=== PATIENT | male | born 1950 | race Caucasian/White ===

== ENCOUNTER 2016-08-27 08:21 | Day surgery (SDC) | payer OTHER, BC ==
[2016-08-26 15:00] VITALS: BMI 27.5
[2016-08-27] MEDS ORDERED: PROPOFOL 20 ML ONE ×3 (10:15)
[2016-08-27] MEDS ORDERED: LIDOCAINE HCL/PF 1% SDV 5ML VIAL ONE (10:15)
[2016-08-27 10:16] VITALS: TEMP 97.5
[2016-08-27 12:15] VITALS: BP 119/61; PULSE 64
--- NOTE | 2016-08-30 13:42 | PATH ---
Surgical Pathology Report Patient Name: Justyna LAWSON [facility] Rec. #: [id number] /Age/Gender: 1950 (Age: 66) / M Account: [id number] Location: ASU-ENDOSCOPY Taken: 08/27/2016 Received: 08/27/2016 Reported: 08/30/2016 Physicians: Balbir Parry M.D. Specimen(s) Received A: RECTAL POLYP B: HEPATIC FLEXURE POLYP C: ASCENDING COLON POLYP D: TRANSVERSE COLON POLYP Clinical History Diverticulosis, partial resection of colon Polyps, diverticulosis, internal and external hemorrhoids Final Diagnosis A. RECTUM, POLYP, POLYPECTOMY: FRAGMENTS OF HYPERPLASTIC POLYP. B. COLON, HEPATIC FLEXURE, POLYP, POLYPECTOMY: TUBULAR ADENOMA. C. COLON, ASCENDING, POLYP, POLYPECTOMY: FRAGMENTS OF TUBULAR ADENOMA. D. COLON, TRANSVERSE, POLYP, POLYPECTOMY: TUBULAR ADENOMA. Electronically Signed Inocente Carter M.D. Gross Description A. Received in formalin, labeled "rectal polyp" are 2 fields, irregular portions of soft tissue measuring 0.2 and 0.3 cm in greatest dimension. The specimens are submitted in toto in one cassette. B. Received in formalin, labeled "hepatic flexure polyp" are 2 fields, irregular portions of soft tissue measuring 0.2 and 0.4 cm in greatest dimension. The specimens are submitted in toto in one cassette. C. Received in formalin, labeled "ascending colon polyp" are 2 fields, irregular portions of soft tissue measuring 0.2 and 0.4 cm in greatest dimension. The specimens are submitted in toto in one cassette. D. Received in formalin, labeled "transverse colon polyp" is a fields, irregular portion of soft tissue measuring 0.2 cm in greatest dimension. The specimen is submitted in toto in one cassette. /08/27/201608/27/2016
== END 2016-08-27 11:25 | disposition home or self-care (01) ==
LOC: JASU-ENDO 08:21
PROVIDERS: ATTEND Internal Medicine Gastroenterology
PROC: 0DBK8ZX Excision of Ascending Colon, Via Natural or Artificial Opening Endoscopic, Diagnostic (ICD-10-PCS; 2016-08-27)
PROC: 0DBL8ZX Excision of Transverse Colon, Via Natural or Artificial Opening Endoscopic, Diagnostic (ICD-10-PCS; 2016-08-27)
PROC: 0DBP8ZX Excision of Rectum, Via Natural or Artificial Opening Endoscopic, Diagnostic (ICD-10-PCS; principal; 2016-08-27 09:30)
DX: Z12.11 Encounter for screening for malignant neoplasm of colon (principal); Z86.010 Personal history of colon polyps; D12.2 Benign neoplasm of ascending colon; D12.3 Benign neoplasm of transverse colon; K62.1 Rectal polyp; K57.30 Diverticulosis of large intestine without perforation or abscess without bleeding; K64.8 Other hemorrhoids
CPT/HCPCS: 88305-TC

== ENCOUNTER 2017-01-13 10:17 | Day surgery (SDC) | payer OTHER, BC ==
[~2017-01-13 10:17] MED LIST: LIDOCAINE HCL 1%, 10 MG/ML (20ML VIAL) IJ ONE
[2017-01-13 11:18] VITALS: BMI 28.1
[2017-01-13] MEDS ORDERED: LIDOCAINE HCL 1%, 10 MG/ML (20ML VIAL) ONE (14:00)
[2017-01-13] MEDS ORDERED: PROMETHAZINE HCL 25 MG/1 ML VIAL IVPUSH PRN ×2 (14:14→16:01)
[2017-01-13] MEDS ORDERED: oxyCODONE HCL 5 MG TABLET PO PRN ×2 (14:14→16:01)
[2017-01-13] MEDS ORDERED: ONDANSETRON 4 MG/2 ML VIAL IVPUSH PRN ×2 (14:14→16:01)
[2017-01-13] MEDS ORDERED: MIDAZOLAM HCL 2 MG/2 ML SINGLE DOSE VIAL ONE ×2 (14:30→14:43)
[2017-01-13] MEDS ORDERED: PROPOFOL 20 ML ONE ×3 (14:41→15:38)
[2017-01-13] MEDS ORDERED: LIDOCAINE HCL 1%, 10 MG/ML (20ML VIAL) IJ ONE (14:41)
[2017-01-13] MEDS ORDERED: LIDOCAINE HCL 1%, 10 MG/ML (50 mL VIAL) IJ ONE (14:41)
[2017-01-13] MEDS ORDERED: ceFAZolin SODIUM 1 GM VIAL IVPB ONE (14:46)
[2017-01-13] MEDS ORDERED: ceFAZolin SODIUM 1 GM VIAL ONE (14:47)
[2017-01-13] MEDS ORDERED: HEPARIN NA (PORCINE) 5,000 UNITS/ML 1ML VIAL ONE (15:10)
--- NOTE | 2017-01-13 16:03 | OP ---
Operative Note - Note: Operative Date: 01/13/17 Pre-Operative Diagnosis: Right lower extremity claudication Operation: Aortogram, RLE angiogram, ant tibial and posterior tibial artery angioplasty Findings: post tibial artery occlusion Post-Operative Diagnosis: Same as Pre-op Surgeon: Julio Hartman Anesthesia: Fractional Estimated Blood Loss (mls): 50 Operative Report Dictated: Yes
[2017-01-13] MEDS ORDERED: CLOPIDOGREL BISULFATE 75 MG TABLET (FP) PO ONE (16:06)
--- NOTE | 2017-01-13 16:08 | HP ---
Admitting History and Physical - Admission Chief Complaint: RLE claudication - Past Medical History MANAGER GAME: Yes: Alzheimer's Cardiovascular: Yes: HTN, Hyperlipdemia, HI Endocrine: Yes: Diabetes Mellitus - Past Surgical History Past Surgical History: Yes: Colectomy - Smoking History Smoking history: Never smoked Aproximately how many cigarettes per day: 0 - Alcohol/Substance Use Hx Alcohol Use: No Home Medications - Allergies Allergies/Adverse Reactions: Allergies Allergy/AdvReac Type Severity Reaction Status Date / Time doxycycline Allergy Verified 01/13/17 11:36 hydromorphone HCl Allergy Verified 01/13/17 11:36 [From Dilaudid] - Home Medications Home Medications: Ambulatory Orders Ezetimibe [Zetia] 10 mg PO DAILY 03/02/13 Fenofibrate 54 mg PO HS 03/02/13 Glimepiride [Amaryl] 4 mg PO BID 03/02/13 Levothyroxine [Synthroid -] 200 mcg PO DAILY 03/02/13 Memantine HCl [Namenda -] 28 mg PO DAILY 03/02/13 Metoprolol Succinate [Toprol XL -] 25 mg PO BID 03/02/13 Ranolazine [Ranexa -] 1,000 mg PO DAILY 03/02/13 Alfuzosin HCl [Alfuzosin HCl ER] 10 mg PO DAILY 08/26/16 Alprazolam [Xanax] 1 mg PO DAILY 08/26/16 Bupropion HCl [Wellbutrin Xl] 300 mg PO DAILY 08/26/16 Cholecalciferol (Vitamin D3) [Vitamin D3] 4,000 unit PO HS 08/26/16 Cyanocobalamin (Vitamin B-12) [Vitamin B12] 2,500 mcg PO DAILY 08/26/16 Finasteride 5 mg PO HS 08/26/16 Galantamine Hydrobromide [Razadyne (Nf)] 4 mg PO BID 08/26/16 Magnesium Oxide [Magnesium] 500 mg PO HS 08/26/16 Pramipexole Di-HCl [Mirapex] 0.5 mg PO HS 08/26/16 Ramipril 1 tab PO DAILY 08/26/16 Sitagliptin Phos/Metformin HCl [Janumet 50-1,000 mg Tablet] 1 each PO BID Prasugrel Hydrochloride [Effient -] 10 mg PO DAILY #0 08/27/16 Clopidogrel Bisulfate [Plavix -] 75 mg PO DAILY #90 tablet 01/13/17 Isosorbide Mononitrate [Isosorbide Mononitrate ER] 30 mg PO DAILY 01/13/17 Rosuvastatin Calcium [Crestor] 40 mg PO HS 01/13/17 Sitagliptin Phos/Metformin HCl [Janumet 50-1,000 mg Tablet] 1 each PO DAILY Ubidecarenone [Co Q-10] 200 mg PO HS 01/13/17 Physical Examination Vital Signs: Vital Signs Temperature 98.1 F 01/13/17 11:49 Pulse Rate 62 01/13/17 11:49 Respiratory Rate 18 01/13/17 11:49 Blood Pressure 115/72 01/13/17 11:49 O2 Sat by Pulse Oximetry (%) 99 01/13/17 11:50 Constitutional: Yes: Well Nourished Eyes: Yes: WNL HENT: Yes: WNL Neck: Yes: WNL Cardiovascular: Yes: WNL Respiratory: Yes: WNL Gastrointestinal: Yes: WNL Extremities: Yes: WNL Edema: No Assessment/Plan RLE claudication 1. For angiogram today
[2017-01-13 17:03] VITALS: TEMP 97.7
--- NOTE | 2017-01-13 17:52 | OP ---
DATE OF OPERATION: 01/13/2017 PREOPERATIVE DIAGNOSIS: Right lower extremity claudication. POSTOPERATIVE DIAGNOSIS: Right lower extremity claudication. PROCEDURE PERFORMED: Aortogram, right lower extremity angiogram, anterior tibial artery angioplasty, posterior tibial artery angioplasty. SURGEON: Julio Melgar DO ANESTHESIA: Fractional. BLOOD LOSS: 50 mL. INDICATIONS: The patient is a 66-year-old male who came into the office complaining of claudication of bilateral lower extremities. Preoperative ultrasound showed that he has femoral, popliteal and tibial disease. It was felt that he would need a diagnostic angiogram. DESCRIPTION OF PROCEDURE: The patient was consented for the procedure, understanding all risks, benefits and alternatives. He was then taken to the operating room. Once in the operating room, the patient was laid on the operating table in the supine manner. The areas of the left and right groin were prepped and draped in a sterile surgical manner. We then injected 10 mL of lidocaine 1% over the left common femoral artery. We then went ahead and used our micropuncture needle and punctured the left common femoral artery. Micropuncture wire was inserted. An additional 5-Gabonese sheath was inserted. We then placed a 0.035 floppy guidewire up into the aorta, followed by an Omni Flush catheter. We then shot an aortogram by hand injection, showing that aorta and iliac arteries bilaterally were without any disease. We then placed an 0.035 floppy guidewire into the right common femoral artery and our Omni Flush catheter was placed. We then shot an angiogram of the right lower extremity, showing that the common femoral artery, the profunda and the SFA were patent. The popliteal artery was patent. Below-knee popliteal artery was patent. The peroneal artery went down to above the ankle, and the anterior tibial artery and the posterior tibial artery were occluded at the ankle level, going into the foot. At this point we placed a 0.035 stiff guidewire down into the SFA. We removed the Omni Flush catheter. We placed a 6 x 55 crossover sheath. After 5000 units of IV heparin was administered to the patient, we then placed a Quick-Cross catheter down into the SFA and took our wire all the way down to the posterior tibial artery. We selectively cannulated the posterior tibial artery and got the wire down to the ankle level, using our Quick-Cross catheter. We then exchanged for a Automotive Parts Specialist wire. We then used a 2.5 x 210 Ultraverse balloon and performed angioplasty of the posterior tibial artery. Completion angiogram now, through the Quick-Cross catheter, showed that the posterior tibial artery was completely patent, all the way from its origin down into the foot. We then placed an 0.035 floppy guidewire into the anterior tibial artery and selectively cannulated the wire all down into the foot, using our Quick-Cross catheter. We then exchanged for a Automotive Parts Specialist wire. We then used a 2.5 x 210 balloon and performed angioplasty of the anterior tibial artery. Completion angiogram showed that the anterior tibial artery was now patent, but above the ankle there was recoil and the artery had very little flow into the foot and reconstitutes in the foot. At this point, we had established 2-vessel runoff of the peroneal and posterior tibial artery in the foot, and at this point we decided that no more intervention was needed. We did not think that the anterior tibial artery would open, after performing angioplasty on it, but the posterior tibial artery was now completely open in its entirety, with good flow. We then went ahead and brought our crossover sheath up and over, and a device was successfully deployed in the left common femoral artery. Pressure was held for 5 minutes. Afterwards there was no bleeding. The area was wet and dried, and Dermabond was placed. The patient tolerated the procedure with no complication. The patient was transferred to back in stable condition. Total blood loss was 50 mL. The patient is now in the PACU and has a palpable PT pulse. JULIO MELGAR DO [id number]
[2017-01-13 19:02] VITALS: BP 102/56; PULSE 59
== END 2017-01-13 18:05 | disposition home or self-care (01) ==
LOC: JASU-SURG 10:17
PROVIDERS: ATTEND Surgery Vascular Surgery
PROC: 047R3ZZ Dilation of Right Posterior Tibial Artery, Percutaneous Approach (ICD-10-PCS; 2017-01-13)
PROC: [UNRECOGNIZED PROCEDURE] (principal; 2017-01-13 14:00)
DX: I70.211 Atherosclerosis of native arteries of extremities with intermittent claudication, right leg (principal); I25.10 Atherosclerotic heart disease of native coronary artery without angina pectoris; E11.9 Type 2 diabetes mellitus without complications; I10 Essential (primary) hypertension; E03.9 Hypothyroidism, unspecified; E78.5 Hyperlipidemia, unspecified
CPT/HCPCS: 36012; 37211; 37228; 37232; C1725; 76000-TC; 94760; J1644

== ENCOUNTER 2019-03-01 18:02 | Inpatient (IN) | payer OTHER, BC ==
--- NOTE | 2019-03-01 18:12 | PDOC ---
Rapid Medical Evaluation Time Seen by Provider: 03/01/19 18:09 Medical Evaluation: Allergies Allergy/AdvReac Type Severity Reaction Status Date / Time doxycycline Allergy Verified 03/01/19 18:08 hydromorphone HCl Allergy Verified 03/01/19 18:08 [From Dilaudid] 03/01/19 18:09 I have performed a brief in-person evaluation of this patient. The patient presents with a chief complaint of: Sent by PMD for admission for uncontrolled diabetes, pancreatic lesion, confirmed on CT scan R/O malignancy. Pt c/o 1 mo of epigastric abdominal dull pain, w/ occasional bloody diarrhea, no fever/chills, no vomiting. Pertinent physical exam findings: Pt in no apparent distress I have ordered the following:FS, EKG, CBC, CMP, lipase, UA, Ucx, CXR, IV fluids The patient will proceed to the ED for further evaluation. 03/01/19 18:16 Discharge Disposition - Diagnosis Abdominal pain Qualifiers: Abdominal location: unspecified location Qualified Code(s): R10.9 - Unspecified abdominal pain - Referrals - Patient Instructions - Post Discharge Activity
[2019-03-01 18:57] LABS: BASO % 1.3 % (0-2.0); EOS % 3.3 % (0-4.5); HEMATOCRIT 37.2 % (35.4-49); HEMOGLOBIN 12.9 GM/dL (11.7-16.9); LYMPH % 21.6 % (8-40); MCH 31.4 pg (25.7-33.7); MCHC 34.7 g/dl (32.0-35.9); MEAN CELL VOLUME 90.5 fl (80-96); MEAN PLT VOLUME 10.3 fl (7.5-11.1); MONO % 19.4 % (3.8-10.2); NEUT % 54.4 % (42.8-82.8); PLATELET COUNT 167 K/MM3 (134-434); RBC 4.11 M/mm3 (4.00-5.60); RDW 13.4 % (11.9-15.9); WHITE BLOOD COUNT 7.6 K/mm3 (4.0-10.0)
[2019-03-01 19:11] LABS: INR 0.9 (0.83-1.09); PROTHROMBIN TIME (PATIENT) 10.6 SEC (9.7-13.0)
--- NOTE | 2019-03-01 19:31 | PDOC ---
History of Present Illness - General Chief Complaint: Revisit,Radiology Variance Stated Complaint: SUGAR PROBLEM/SENT BY PCP Time Seen by Provider: 03/01/19 18:09 History Source: Patient Exam Limitations: No Limitations - History of Present Illness Initial Comments: 68 yo M, HTN, HLD, DM, extensive cardiac history including more than 10 heart attacks, 6-7 stents, multiple angioplasties, sent by PCP for new pancreatic mass found on CT and hyperglycemia. Patient has lost around 20 pounds in the last 6 weeks. Also reports excessive thirst and frequent urination, about once every half hour. Further endorses some mild epigastric pain and some difficulty getting food down that feels like "it is bubbling up". Patient reports that his HbA1C went from the 8s to the 10s. Denies SOB, wheezing, constipation/diarrhea, fevers/chills, WHITMAN, dizziness. 03/01/19 19:35 03/01/19 19:38 Past History - Past Medical History Allergies/Adverse Reactions: Allergies Allergy/AdvReac Type Severity Reaction Status Date / Time doxycycline Allergy Verified 03/01/19 18:08 hydromorphone HCl Allergy Verified 03/01/19 18:08 [From Dilaudid] Home Medications: Ambulatory Orders Ezetimibe [Zetia] 10 mg PO DAILY 03/02/13 Fenofibrate 54 mg PO HS 03/02/13 Glimepiride [Amaryl] 4 mg PO BID 03/02/13 Levothyroxine [Synthroid -] 200 mcg PO DAILY 03/02/13 Memantine HCl [Namenda -] 28 mg PO DAILY 03/02/13 Metoprolol Succinate [Toprol XL -] 25 mg PO BID 03/02/13 Ranolazine [Ranexa -] 1,000 mg PO DAILY 03/02/13 Alfuzosin HCl [Alfuzosin HCl ER] 10 mg PO DAILY 08/26/16 Alprazolam [Xanax] 1 mg PO DAILY 08/26/16 Bupropion HCl [Wellbutrin Xl] 300 mg PO DAILY 08/26/16 Cholecalciferol (Vitamin D3) [Vitamin D3] 4,000 unit PO HS 08/26/16 Cyanocobalamin (Vitamin B-12) [Vitamin B12] 2,500 mcg PO DAILY 08/26/16 Finasteride 5 mg PO HS 08/26/16 Galantamine Hydrobromide [Razadyne (Nf)] 4 mg PO BID 08/26/16 Magnesium Oxide [Magnesium] 500 mg PO HS 08/26/16 Pramipexole Di-HCl [Mirapex] 0.5 mg PO HS 08/26/16 Ramipril 1 tab PO DAILY 08/26/16 Prasugrel Hydrochloride [Effient -] 10 mg PO DAILY #0 08/27/16 Isosorbide Mononitrate [Isosorbide Mononitrate ER] 30 mg PO DAILY 01/13/17 Rosuvastatin Calcium [Crestor] 40 mg PO HS 01/13/17 Sitagliptin Phos/Metformin HCl [Janumet 50-1,000 mg Tablet] 1 each PO DAILY Ubidecarenone [Co Q-10] 200 mg PO HS 01/13/17 Anemia: No Asthma: No Cancer: No Cardiac Disorders: Yes (H/O CARDIAC ARREST DURING SURGERY) CVA: No COPD: No Dementia: ("FORGETFUL") Diabetes: Yes (NIDDM) GI Disorders: Yes (DIVERTICULOSIS,GERD,DIVERTICULITIS) Disorders: No HTN: Yes Hypercholesterolemia: Yes (HYPERLIPIDEMIA) Liver Disease: No Seizures: No Thyroid Disease: Yes - Surgical History Abdominal Surgery: Yes (COLON RESECTION 2005) Appendectomy: Yes (2005) Cardiac Surgery: Yes (STENTSX 7) Cholecystectomy: No Neurologic Surgery: No Orthopedic Surgery: Yes (RIGHT KNEE, FOOT SURGERY) - Immunization History Immunization Up to Date: Yes - Suicide/Smoking/Psychosocial Hx Smoking Status: No Smoking History: Never smoked Number of Cigarettes Smoked Daily: 0 Hx Alcohol Use: No Drug/Substance Use Hx: No Substance Use Type: None Review of Systems - Review of Systems Able to Perform ROS?: Yes Constitutional: Yes: Unintentional Wgt. Loss. No: Chills, Fever HEENTM: Yes: Difficulty Swallowing (feels like there are bubbles caught). No: Eye Pain, Double Vision, Nose Pain, Throat Pain, Throat Swelling, Mouth Swelling Respiratory: No: Cough, Orthopnea, Shortness of Breath Cardiac (ROS): No: Chest Pain, Edema ABD/GI: Yes: Nausea, Other (epigastric pain). No: Abdominal Distended, Abd. Pain w/ defecation, Diarrhea, Difficulty Swallowing, Vomiting : Yes: Frequency Musculoskeletal: No: Back Pain Neurological: No: Headache, Numbness *Physical Exam - Vital Signs Last Vital Signs Temp Pulse Resp BP Pulse Ox 97.9 F 84 18 153/72 100 03/01/19 18:10 03/01/19 18:10 03/01/19 18:10 03/01/19 18:10 03/01/19 18:10 - Physical Exam General Appearance: Yes: Nourished, Appropriately Dressed. No: Apparent Distress HEENT: positive: EOMI, MONA, Normal ENT Inspection, Normal Voice, Symmetrical, Pharynx Normal, Hearing Grossly Normal Neck: positive: Normal Thyroid, Supple. negative: Tender Respiratory/Chest: positive: Lungs Clear, Normal Breath Sounds. negative: Chest Tender, Respiratory Distress, Accessory Muscle Use Cardiovascular: positive: Regular Rhythm, Regular Rate Gastrointestinal/Abdominal: positive: Normal Bowel Sounds, Tender (very mild ttp to epigastrium), Soft Musculoskeletal: positive: Normal Inspection. negative: CVA Tenderness Extremity: positive: Normal Capillary Refill, Normal Inspection, Normal Range of Motion. negative: Tender Integumentary: positive: Normal Color, Dry, Warm Neurologic: positive: graphic user interface designer II-XII NML intact, Fully Oriented, Alert, Normal Mood/ Affect, Normal Response, Motor Strength 5/5 ED Treatment Course - LABORATORY CBC & Chemistry Diagram: 03/01/19 18:38 03/01/19 18:38 - ADDITIONAL ORDERS Additional order review: Laboratory Results 03/01/19 03/01/19 18:38 18:38 PT with INR 10.60 INR 0.90 Creatine Kinase 110 Troponin I < 0.02 03/01/19 18:38 RBC 4.11 MCV 90.5 MCHC 34.7 RDW 13.4 MPV 10.3 Neutrophils % 54.4 Lymphocytes % 21.6 Monocytes % 19.4 H Eosinophils % 3.3 Basophils % 1.3 Medical Decision Making - Medical Decision Making Discussed patient with his PCP, Dr. Cook. Said that he does not feel comfortable managing him outpatient, as he has had a rapid weight loss over the last 6 weeks. He requested that the patient be admitted to Dr. Shen or Dr. Faulkner, depending on who is working, and to have Dr. Escalante consulted. 03/01/19 19:30 Lipase 2575, Glu 723, Glu 2.1. 1L NS started 03/01/19 19:50 pH 7.36 03/01/19 20:12 *DC/Admit/Observation/Transfer Diagnosis at time of Disposition: Hyperglycemia, Pancreatic mass, NIDA (acute kidney injury) Abdominal pain Qualifiers: Abdominal location: unspecified location Qualified Code(s): R10.9 - Unspecified abdominal pain - Discharge Dispostion Condition at time of disposition: Guarded Decision to Admit order: Yes - Referrals Referrals: Maxwell Cook MD [Primary Care Provider] - - Patient Instructions - Post Discharge Activity
[2019-03-01 19:35] LABS: ALBUMIN 3.6 g/dl (3.4-5.0); BILIRUBIN,TOTAL 0.4 mg/dL (0.2-1); BLOOD UREA NITROGEN 29.1 mg/dL (7-18); CALCIUM 8.7 mg/dL (8.5-10.1); CREATININE 2.1 mg/dL (0.55-1.3); PHOSPHOROUS 3.6 mg/dL (2.5-4.9); POTASSIUM 4.4 mmol/L (3.5-5.1); TOT PROT 6.6 g/dl (6.4-8.2)
--- NOTE | 2019-03-01 19:38 | PDOC ---
Documentation entered by Licha Tong SCRIBE, acting as scribe for Marko Painting MD. Marko Painting MD: This documentation has been prepared by the carmelaibquin, Licha Tong SCRIBE, under my direction and personally reviewed by me in its entirety. I confirm that the documentation accurately reflects all work, treatment, procedures, and medical decision making performed by me. Attending Attestation - Resident Resident Name: SantamariaJeangregoria - ED Attending Attestation I have performed the following: I have examined & evaluated the patient, The case was reviewed & discussed with the resident, I agree w/resident's findings & plan, Exceptions are as noted - HPI HPI: 03/01/19 19:33 The patient is a 68-year-old male, with a past medical history of HTN, HLD, DM, IA, diverticulitis with surgical resection, and alzheimers, who was sent to the ED from Dr. Parks office for admission to Dr. Shen or Dr. Faulkner for uncontrolled diabetes (BS in 400s) and a new 14 mm pancreatic lesion that was noted on CT. Patient reports recent 20 pound weight loss over the last 6 weeks. The patient denies any fevers, chills, nausea, vomiting, diarrhea, or abdominal pain. Denies any chest pain, palpitations, or shortness of breath. Allergies: Doxycycline, hydromorphone HCl. PCP: Dr. Cook - Physicial Exam PE: 03/01/19 19:29 Agree with exam as documented by resident - Medical Decision Making 03/01/19 20:57 Rapid weight loss, profound hyperglycemia Mental status normal, AOX3 Sent in by PCP for in patient management of pancreatic pathology and hyperglycemia Na normal range when corrected for hyperglycemia No acidosis Admit
[2019-03-01] MEDS ORDERED: SODIUM CHLORIDE 1,000 ML IV STA ×4 (19:49→22:25)
[2019-03-01 20:10] LABS: VENOUS PC02 38.2 mmHg (41-51); VENOUS PH 7.36 (7.31-7.41)
[2019-03-01 20:11] LABS: VENOUS PO2 29.3 mmHg (30-40)
[2019-03-01 20:27] LABS: URINE APPEARANCE CLEAR; URINE BILIRUBIN NEGATIVE (NEGATIVE); URINE COLOR YELLOW; URINE GLUCOSE (UA) 3+ (NEGATIVE); URINE KETONE NEGATIVE (NEGATIVE); URINE LEUK ESTERASE NEGATIVE (NEGATIVE); URINE NITRITE NEGATIVE (NEGATIVE); URINE PROTEIN NEGATIVE (NEGATIVE); URINE UROBILINOGEN 0.2 mg/dL (0.2-1.0)
[2019-03-01] MEDS ORDERED: INSULIN REGULAR HUMAN 100 UNITS/ML *VIAL ONE ×2 (20:52→20:53)
[2019-03-01] MEDS ORDERED: INSULIN REGULAR HUMAN 100 UNITS/ML *VIAL IVPUSH ONE ×2 (21:55→22:32)
[2019-03-01] MEDS: SODIUM CHLORIDE 1,000 ML IV SCH (22:41)
[2019-03-01 23:43] LABS: CREATININE 1.6 mg/dL (0.55-1.3); POTASSIUM 3.9 mmol/L (3.5-5.1)
--- NOTE | 2019-03-02 00:16 | PN ---
Teaching Attending Note Name of Resident: Brenton Law ATTENDING PHYSICIAN STATEMENT I saw and evaluated the patient. I reviewed the resident's note and discussed the case with the resident. I agree with the resident's findings and plan as documented. 68 Y/O M W uncontrolled DM, hyper TG, HTN, PVD, CVD disease with multiple PCI in the past, periperal neuropathy, non adherence to diet was sent from the clinic for abnormal pancreatic imaging. polyuria, polydipsia, weight loss for 1 month, previously A1C 8 and now is >10, is on Janumet and glipizide at home. non adherent to diet. Abdominal pain for 1 month, gradual onset, constant, mild to moderate, no trigger, some aggravation with meals, epigastric and christina-umbilical area, non radiating, states that took some PPI with some improvement of symptoms, accompanied with early satiety. W/U for abdominal pain showed small pancreatic mass with calcification with concern for chronic pancreatitis.. Vital Signs (72 hours) 03/01/19 03/01/19 03/01/19 18:10 22:39 22:56 Temperature 97.9 F Pulse Rate 84 Pulse Rate [ 69 Apical] Respiratory 18 20 Rate Blood Pressure 153/72 Blood Pressure 111/61 [Left Arm] O2 Sat by Pulse 100 98 98 Oximetry (%) At this time in no distress moves in bed with no distress CTAB CVS:S1S2 Abd:BS+ nt/nd EXT: no edema CBCD WBC 7.6 K/mm3 (4.0-10.0) 03/01/19 18:38 RBC 4.11 M/mm3 (4.00-5.60) 03/01/19 18:38 Hgb 12.9 GM/dL (11.7-16.9) 03/01/19 18:38 Hct 37.2 % (35.4-49) 03/01/19 18:38 MCV 90.5 fl (80-96) 03/01/19 18:38 MCHC 34.7 g/dl (32.0-35.9) 03/01/19 18:38 RDW 13.4 % (11.9-15.9) 03/01/19 18:38 Plt Count 167 K/MM3 (134-434) D 03/01/19 18:38 MPV 10.3 fl (7.5-11.1) 03/01/19 18:38 CMP Sodium 139 mmol/L (136-145) 03/01/19 22:56 Potassium 3.9 mmol/L (3.5-5.1) 03/01/19 22:56 Chloride 111 mmol/L (98-107) H 03/01/19 22:56 Carbon Dioxide 23 mmol/L (21-32) 03/01/19 22:56 Anion Gap 6 MMOL/L (8-16) L 03/01/19 22:56 BUN 26.0 mg/dL (7-18) H 03/01/19 22:56 Creatinine 1.6 mg/dL (0.55-1.3) H 03/01/19 22:56 Random Glucose 254 mg/dL (74-106) H 03/01/19 22:56 Calcium 8.0 mg/dL (8.5-10.1) L 03/01/19 22:56 Total Bilirubin 0.4 mg/dL (0.2-1) 03/01/19 18:38 AST 14 U/L (15-37) L 03/01/19 18:38 ALT 23 U/L (13-61) 03/01/19 18:38 Alkaline Phosphatase 85 U/L (45-117) 03/01/19 18:38 Total Protein 6.6 g/dl (6.4-8.2) 03/01/19 18:38 Albumin 3.6 g/dl (3.4-5.0) 03/01/19 18:38 CARDIAC ENZYMES Creatine Kinase 110 U/L (26-308) 03/01/19 18:38 Troponin I < 0.02 ng/ml (0.00-0.05) 03/01/19 18:38 Will treat him for HHS at this time. At this time he has received 3 L NS and his FS has dropped to 250 and he is tolerating Po diet, will give 5 unites SQ regular insulin while patient is eating food and monitor FS. will ask for nutrition consult will ask nursing staff to teach the patient about insulin injection Will C.W Milton on DC will C/W aspiring, statin abdominal pain with early satiety: most likely due to chronic pancreatitis, but should get EGD as well as gastric emptying studies. Will ask for GI for further recs Pancreatic abnormal finding with elevated amylase levels:will get MRCP pending GI recs dyslipidemia: he is already n crestor and zetia, can consider initiating PSK9 inhibitors mixed acid base disorder on admission, with respiratory alkalosis and metabolic acidosis, will monitor VBG . rest of the management per HS note
[2019-03-02] MEDS: HEPARIN NA (PORCINE) 5,000 UNITS/ML 1ML VIAL SQ SCH ×3 (02:29→18:32)
[2019-03-02 04:10] VITALS: BMI 27.8
[2019-03-02] MEDS: LEVOTHYROXINE NA 200 MCG TABLET PO SCH (06:29)
[2019-03-02] MEDS: INSULIN SLIDING SCALE (NOVOLOG) 1 VIAL SQ SCH ×4 (06:30→22:48)
--- NOTE | 2019-03-02 07:07 | PN ---
Physical Exam: SUBJECTIVE: Patient seen and examined at bed side , complain of sever polyuria , polydipsia was send to ED by his doctor after found pancreatic mass pt reports 20 pound weight loss , reports some abdominal discomfort, and early satiety , denies any fever , chills, N/V/D/C reports history of diverticulosis and colon resection , appendectomy. no family history of colon cancer or pancreatic cancer OBJECTIVE: Vital Signs Period Temp Pulse Resp BP Sys/Casiano Pulse Ox Last 24 Hr 97.9 F-98.7 F 61-84 18-20 110-153/60-72 98-100 GENERAL: The patient is awake, alert, and fully oriented, in no acute distress. HEAD: Normal with no signs of trauma. EYES: PERRL, extraocular movements intact, sclera anicteric, ENT: MMM. NECK: supple. LUNGS: Breath sounds equal, clear to auscultation bilaterally, no wheezes, no crackles, no accessory muscle use. HEART: Regular rate and rhythm, S1, S2, 3/6 systolic murmur RUSB , no rub or gallop. ABDOMEN: Soft, LUQ tenderess mild , nondistended, normoactive bowel sounds, no guarding, no rebound, EXTREMITIES: 2+ pulses, warm, well-perfused, no edema. NEUROLOGICAL: no focal deficit . Normal speech, gait not observed. PSYCH: Normal mood, normal affect. SKIN: Warm, dry, Laboratory Results - last 24 hr 03/01/19 03/01/19 03/01/19 18:38 18:38 18:38 WBC 7.6 RBC 4.11 Hgb 12.9 Hct 37.2 MCV 90.5 MCH 31.4 MCHC 34.7 RDW 13.4 Plt Count 167 D MPV 10.3 Absolute Neuts (auto) 4.2 Neutrophils % 54.4 Lymphocytes % 21.6 Monocytes % 19.4 H Eosinophils % 3.3 Basophils % 1.3 Nucleated RBC % 0 PT with INR INR PTT (Actin FS) VBG pH POC VBG pCO2 POC VBG pO2 VBG HCO3 VBG O2 Sat (Saadia) VBG Base Excess Sodium 130 L Potassium 4.4 Chloride 99 Carbon Dioxide 20 L Anion Gap 11 BUN 29.1 H Creatinine 2.1 H Est GFR (CKD-EPI)AfAm 36.13 Est GFR (CKD-EPI)NonAf 31.18 POC Glucometer Random Glucose 723 H* Hemoglobin A1c % Calcium 8.7 Phosphorus 3.6 Magnesium 2.0 Total Bilirubin 0.4 AST 14 L ALT 23 Alkaline Phosphatase 85 Creatine Kinase 110 Troponin I < 0.02 Total Protein 6.6 Albumin 3.6 Triglycerides Cholesterol Total LDL Cholesterol HDL Cholesterol Lipase 2575 H Urine Color Urine Appearance Urine pH Ur Specific [place] Urine Protein Urine Glucose (UA) Urine Ketones Urine Blood Urine Nitrite Urine Bilirubin Urine Urobilinogen Ur Leukocyte Esterase Acetone, Qual Blood Type Antibody Screen 03/01/19 03/01/19 03/01/19 18:38 18:38 18:38 WBC RBC Hgb Hct MCV MCH MCHC RDW Plt Count MPV Absolute Neuts (auto) Neutrophils % Lymphocytes % Monocytes % Eosinophils % Basophils % Nucleated RBC % PT with INR 10.60 INR 0.90 PTT (Actin FS) 28.6 VBG pH POC VBG pCO2 POC VBG pO2 VBG HCO3 VBG O2 Sat (Saadia) VBG Base Excess Sodium Potassium Chloride Carbon Dioxide Anion Gap BUN Creatinine Est GFR (CKD-EPI)AfAm Est GFR (CKD-EPI)NonAf POC Glucometer Random Glucose Hemoglobin A1c % Calcium Phosphorus Magnesium Total Bilirubin AST ALT Alkaline Phosphatase Creatine Kinase Troponin I Total Protein Albumin Triglycerides Cholesterol Total LDL Cholesterol HDL Cholesterol Lipase Urine Color Urine Appearance Urine pH Ur Specific [place] Urine Protein Urine Glucose (UA) Urine Ketones Urine Blood Urine Nitrite Urine Bilirubin Urine Urobilinogen Ur Leukocyte Esterase Acetone, Qual Blood Type O POSITIVE Antibody Screen Negative 03/01/19 03/01/19 03/01/19 19:47 20:03 20:03 WBC RBC Hgb Hct MCV MCH MCHC RDW Plt Count MPV Absolute Neuts (auto) Neutrophils % Lymphocytes % Monocytes % Eosinophils % Basophils % Nucleated RBC % PT with INR INR PTT (Actin FS) VBG pH 7.36 POC VBG pCO2 38.2 L POC VBG pO2 29.3 L VBG HCO3 21.0 L VBG O2 Sat (Saadia) 54.3 L VBG Base Excess -3.5 L Sodium Potassium Chloride Carbon Dioxide Anion Gap BUN Creatinine Est GFR (CKD-EPI)AfAm Est GFR (CKD-EPI)NonAf POC Glucometer Random Glucose Hemoglobin A1c % Calcium Phosphorus Magnesium Total Bilirubin AST ALT Alkaline Phosphatase Creatine Kinase Troponin I Total Protein Albumin Triglycerides Cholesterol Total LDL Cholesterol HDL Cholesterol Lipase Urine Color Yellow Urine Appearance Clear Urine pH 5.0 Ur Specific [place] 1.036 H Urine Protein Negative Urine Glucose (UA) 3+ H Urine Ketones Negative Urine Blood Negative Urine Nitrite Negative Urine Bilirubin Negative Urine Urobilinogen 0.2 Ur Leukocyte Esterase Negative Acetone, Qual Negative Blood Type Antibody Screen 03/01/19 03/01/19 03/01/19 21:57 22:56 22:56 WBC RBC Hgb Hct MCV MCH MCHC RDW Plt Count MPV Absolute Neuts (auto) Neutrophils % Lymphocytes % Monocytes % Eosinophils % Basophils % Nucleated RBC % PT with INR INR PTT (Actin FS) VBG pH POC VBG pCO2 POC VBG pO2 VBG HCO3 VBG O2 Sat (Saadia) VBG Base Excess Sodium 139 Potassium 3.9 Chloride 111 H Carbon Dioxide 23 Anion Gap 6 L BUN 26.0 H Creatinine 1.6 H Est GFR (CKD-EPI)AfAm 50.20 Est GFR (CKD-EPI)NonAf 43.31 POC Glucometer 303 Random Glucose 254 H Hemoglobin A1c % 10.3 H Calcium 8.0 L Phosphorus Magnesium Total Bilirubin AST ALT Alkaline Phosphatase Creatine Kinase Troponin I Total Protein Albumin Triglycerides 520 H Cholesterol 92 Total LDL Cholesterol 28 HDL Cholesterol 22 L Lipase Urine Color Urine Appearance Urine pH Ur Specific [place] Urine Protein Urine Glucose (UA) Urine Ketones Urine Blood Urine Nitrite Urine Bilirubin Urine Urobilinogen Ur Leukocyte Esterase Acetone, Qual Blood Type Antibody Screen 03/01/19 03/02/19 03/02/19 22:56 02:24 06:24 WBC RBC Hgb Hct MCV MCH MCHC RDW Plt Count MPV Absolute Neuts (auto) Neutrophils % Lymphocytes % Monocytes % Eosinophils % Basophils % Nucleated RBC % PT with INR INR PTT (Actin FS) VBG pH POC VBG pCO2 POC VBG pO2 VBG HCO3 VBG O2 Sat (Saadia) VBG Base Excess Sodium Potassium Chloride Carbon Dioxide Anion Gap BUN Creatinine Est GFR (CKD-EPI)AfAm Est GFR (CKD-EPI)NonAf POC Glucometer 293 308 Random Glucose Hemoglobin A1c % Calcium Phosphorus Magnesium Total Bilirubin AST ALT Alkaline Phosphatase Creatine Kinase Troponin I Total Protein Albumin Triglycerides Cancelled Cholesterol Cancelled Total LDL Cholesterol Cancelled HDL Cholesterol Cancelled Lipase Urine Color Urine Appearance Urine pH Ur Specific [place] Urine Protein Urine Glucose (UA) Urine Ketones Urine Blood Urine Nitrite Urine Bilirubin Urine Urobilinogen Ur Leukocyte Esterase Acetone, Qual Blood Type Antibody Screen Active Medications Generic Name Dose Route Start Last Admin Trade Name Freq PRN Reason Stop Dose Admin Acetaminophen 650 mg 03/01/19 22:25 Tylenol - PO Q4H PRN PAIN Aspirin 81 mg 03/02/19 10:00 Asa - PO DAILY [facility] Cholecalciferol 4,000 unit 03/02/19 22:00 Vitamin D3 - PO HS [facility] Diltiazem HCl 30 mg 03/02/19 10:00 Cardizem - PO BID [facility] Ezetimibe 10 mg 03/02/19 10:00 Zetia - PO DAILY [facility] Fenofibric Acid 45 mg 03/02/19 22:00 Trilipix - PO HS [facility] Finasteride 5 mg 03/02/19 22:00 Proscar - PO HS [facility] Heparin Sodium (Porcine) 5,000 unit 03/02/19 02:00 03/02/19 02:29 Heparin - SQ 5,000 unit Q8H-IV RAMON Administration Sodium Chloride 1,000 mls @ 125 mls/hr 03/01/19 22:30 03/01/19 22:41 Normal Saline - IV 125 mls/hr ASDIR RAMON Administration Insulin Aspart 0 vial 03/02/19 07:00 03/02/19 06:30 Novolog Vial Sliding Scale - SQ 8 units ACHS [facility] Administration Protocol Isosorbide Mononitrate 30 mg 03/02/19 10:00 Imdur - PO BID [facility] Levothyroxine Sodium 200 mcg 03/02/19 07:00 03/02/19 06:29 Synthroid - PO 200 mcg DAILY@0700 RAMON Administration Magnesium Oxide 400 mg 03/02/19 22:00 Mag-Ox - PO HS [facility] Metoprolol Succinate 25 mg 03/02/19 22:00 Toprol Xl - PO HS [facility] Non-Formulary Medication 8 mg 03/02/19 10:00 Galantamine Hydrobromide [Razadyne (Nf)] PO BID [facility] Non-Formulary Medication 2 gm 03/02/19 10:00 Icosapent Ethyl [Vascepa] PO BID [facility] Prasugrel 10 mg 03/02/19 10:00 Effient - PO 03/06/19 10:01 DAILY [facility] Ramipril 2.5 mg 03/02/19 10:00 Altace - PO DAILY [facility] Rosuvastatin Calcium 40 mg 03/02/19 22:00 Crestor - PO HS [facility] Tamsulosin HCl 0.4 mg 03/02/19 08:30 Flomax - PO DAILY@0830 [facility] CBC, BMP 03/02/19 07:30 03/02/19 07:30 CT scan with IV contrast : Cystic lesion within the uncinate process of the pancreas suggesting cystic neoplasm. Correlation with MR imaging and MRCP recommended as clinically warranted. Pancreatic calcifications suggesting chronic pancreatitis. This lesion was not fully visualized on prior imaging which was obtained without intravenous contrast media. Partial bowel resection with anastomosis in the sigmoid as discussed above. Findings were present on prior imaging. Enlarged prostate gland seen previously. ASSESSMENT/PLAN: 68 yo M, HTN, HLD, DM, extensive cardiac history including more than 10 heart attacks, 6-7 stents, multiple angioplasties, sent by PCP for new pancreatic mass found on CT and hyperglycemia. # DM # NIDA #Cystic lesion within the uncinate process of the pancreas suggesting cystic neoplasm. # Pancreaticcalcification possible Chronic pancreatitis pending MRI # Gastroparesis # HTN # HLD on crestor #BPH # Hypothyroidism # CVD # PVD # Enlaged prostate # Heart Murmur # weight loss likely due to DM #Dysphagia , pending speech and swallow evaluation Plan * BGM, ACHS , Levemir 10 [address] HS stated by Dr Quiñonez * ISS * IV fluids * Lipase , amylase , * GI consulted Dr Watt * TSH, Ft4 , resume home synthroid * Flomax and finasterid for BPH * resume home meds Deltizim , Imdur , Ramipril, Torol Xl , ASA #DVT ppx * Heparin 5000 U #FEN: * NS @ 100 CC/hr * Monitor lytes * Low Sodium, Diabetic diet #Dispo: M/S Visit type - Emergency Visit Emergency Visit: Yes ED Registration Date: 03/01/19 Care time: The patient presented to the Emergency Department on the above date and was hospitalized for further evaluation of their emergent condition. - New Patient This patient is new to me today: Yes Date on this admission: 03/02/19 - Critical Care Critical Care patient: No - Discharge Referral Referred to [facility] No ATTENDING PHYSICIAN STATEMENT I saw and evaluated the patient. I reviewed the resident's note and discussed the case with the resident. I agree with the resident's findings and plan as documented. SUBJECTIVE: OBJECTIVE: ASSESSMENT AND PLAN:
[2019-03-02 08:07] LABS: BASO % 1.2 % (0-2.0); EOS % 6.4 % (0-4.5); HEMATOCRIT 32.1 % (35.4-49); HEMOGLOBIN 11.3 GM/dL (11.7-16.9); LYMPH % 22.3 % (8-40); MCH 30.9 pg (25.7-33.7); MCHC 35.4 g/dl (32.0-35.9); MEAN CELL VOLUME 87.4 fl (80-96); MONO % 12.9 % (3.8-10.2); NEUT % 57.2 % (42.8-82.8); RBC 3.67 M/mm3 (4.00-5.60); RDW 13.4 % (11.9-15.9)
--- NOTE | 2019-03-02 08:36 | CONSULT ---
Consult Consult Specialty:: Endocrinology Referred by:: Dr Shen Reason for Consultation:: Hyperglycemia - History of Present Illness Chief Complaint: Hyperglycemia History of Present Illness: This is a 68-year-old male, with h/o T2DM for about 10 years, never on Insulin , HTN, HLD, AR, diverticulitis with surgical resection, and alzheimers, who was sent to the ED from Dr. Parks office for admission to Dr. Shen or Dr. Faulkner for uncontrolled diabetes (BS in 400s) and a new 14 mm pancreatic lesion that was noted on CT. Patient reports recent 20 pound weight loss over the last 6 weeks. Pt also has polyuria, polydipsia for last few weeks and paresthesia of feet. Has stopped Janumet and Amaryl for [address] Scan which was yesterday and day before yesterday. Doesn't do FS at home. Says his A1c is usually around 8 but is higher recently. Denies any visual symptoms and saw Ophthalmology a few years ago. No family h/o DM. 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: Alzheimer's Cardio/Vascular: Yes: HTN, Hyperlipdemia, AR Endocrine: Yes: Diabetes Mellitus - Past Surgical History Past Surgical History: Yes: Colectomy - Alcohol/Substance Use Hx Alcohol Use: No - Smoking History Smoking history: Never smoked Aproximately how many cigarettes per day: 0 Home Medications - Allergies Allergies/Adverse Reactions: Allergies Allergy/AdvReac Type Severity Reaction Status Date / Time doxycycline Allergy Verified 03/01/19 18:08 hydromorphone HCl Allergy Verified 03/01/19 18:08 [From Dilaudid] - Home Medications Home Medications: Ambulatory Orders Ezetimibe [Zetia] 10 mg PO DAILY 03/02/13 Fenofibrate 54 mg PO HS 03/02/13 Glimepiride [Amaryl] 4 mg PO BID 03/02/13 Levothyroxine [Synthroid -] 200 mcg PO DAILY 03/02/13 Metoprolol Succinate [Toprol XL -] 25 mg PO HS 03/02/13 Ranolazine [Ranexa -] 1,000 mg PO DAILY 03/02/13 Alfuzosin HCl [Alfuzosin HCl ER] 10 mg PO DAILY 08/26/16 Cholecalciferol (Vitamin D3) [Vitamin D3] 4,000 unit PO HS 08/26/16 Cyanocobalamin (Vitamin B-12) [Vitamin B12] 2,500 mcg PO DAILY 08/26/16 Finasteride 5 mg PO HS 08/26/16 Galantamine Hydrobromide [Razadyne (Nf)] 8 mg PO BID 08/26/16 Magnesium Oxide [Magnesium] 500 mg PO HS 08/26/16 Ramipril 1 tab PO DAILY 08/26/16 Prasugrel Hydrochloride [Effient -] 10 mg PO DAILY #0 08/27/16 Isosorbide Mononitrate [Isosorbide Mononitrate ER] 30 mg PO BID 01/13/17 Rosuvastatin Calcium [Crestor] 40 mg PO HS 01/13/17 Sitagliptin Phos/Metformin HCl [Janumet 50-1,000 mg Tablet] 1 each PO BID Ubidecarenone [Co Q-10] 200 mg PO HS 01/13/17 Aspirin 81 mg PO DAILY 03/01/19 Diltiazem [Cardizem -] 30 mg PO BID 03/01/19 Icosapent Ethyl [Vascepa] 2 gm PO BID 03/01/19 Family Disease History - Family Disease History Other Family History: No h/o of DM in immediate family members. Cousins have DM Review of Systems - Review of Systems Constitutional: reports: Unintentional Wgt. Loss Eyes: reports: No Symptoms HENT: reports: No Symptoms Neck: reports: No Symptoms Cardiovascular: reports: No Symptoms Respiratory: reports: No Symptoms Gastrointestinal: reports: No Symptoms Genitourinary: reports: Other (Polyuria, polydipsia) Musculoskeletal: reports: No Symptoms Neurological: reports: No Symptoms Endocrine: reports: No Symptoms Physical Exam Vital Signs: Vital Signs Temperature 98.2 F 03/02/19 06:54 Pulse Rate 61 03/02/19 06:54 Respiratory Rate 18 03/02/19 06:54 Blood Pressure 118/65 03/02/19 06:54 O2 Sat by Pulse Oximetry (%) 98 03/01/19 23:14 Constitutional: Yes: No Distress, Calm Eyes: Yes: Conjunctiva Clear, EOM Intact HENT: Yes: Atraumatic, Normocephalic Neck: Yes: Supple, Trachea Midline Cardiovascular: Yes: Regular Rate and Rhythm, Murmur Respiratory: Yes: Regular, CTA Bilaterally Gastrointestinal: Yes: Normal Bowel Sounds, Soft Musculoskeletal: Yes: WNL Extremities: Yes: WNL Edema: No Neurological: Yes: Alert, Oriented Assessment/Plan AP: T2DM with hyperglycemia Pancreatic lesion Wt loss Hypothyroidism HTN CAD BGM QACHS Nutrition consult Hold oral hypoglycemia meds for now NOvolog SS coverage Will add basal Insulin if blood sugar remains >200 Will f/u
[2019-03-02 08:49] LABS: BILIRUBIN,TOTAL 0.4 mg/dL (0.2-1); BLOOD UREA NITROGEN 24.1 mg/dL (7-18); CALCIUM 8.6 mg/dL (8.5-10.1); CREATININE 1.3 mg/dL (0.55-1.3); POTASSIUM 4.1 mmol/L (3.5-5.1); TOT PROT 5.5 g/dl (6.4-8.2)
[2019-03-02] MEDS ORDERED: PT OWN MED DRAWER 7, Y5N ONE ×2 (09:04→22:42)
[2019-03-02 09:08] LABS: PLATELET COUNT 152 K/MM3 (134-434)
[2019-03-02] MEDS: PRASUGREL HCL 10 MG TAB PO SCH (09:30)
[2019-03-02] MEDS: ASPIRIN 81 MG CHEWABLE TABLETS PO SCH (09:31)
[2019-03-02] MEDS: TAMSULOSIN HCL 0.4 MG CAP PO SCH (09:32)
[2019-03-02] MEDS: EZETIMIBE 10 MG TABLET (FP) PO SCH (09:33)
--- NOTE | 2019-03-02 09:33 | CON.GI ---
Consult Consult Specialty:: GI Referred by:: Hospitalist Service Reason for Consultation:: Pancreatic mass - History of Present Illness Chief Complaint: Increased urinary frequency / generalized malaise History of Present Illness: 68M admitted through [facility] by request of his PMD. Patient had complains of increased urinary frequency and 20 pound weight loss for about a month. He also complained of pelvic pain as well as upper abdominal pain. Lab work revealed blood glucose 700 and an elevated lipase and CT scan of the A/P with PO and IV contrast 02/27/19 revealing a 1.4cm cystic process in the uncinate process as well as calcifications in the pancreas c/w chronic calcific pancreatitis and a 7.7mm derek hepatis LN. The prostate was markedly enlarged as well. He was followed by Dr. Parry who last performed colonoscopy in 2017. This led to the removal of multiple tubular adenomas. He denies early satiety, nausea, vomiting, change in bowel habits (aside from loose BM yesterday ). He complains of dysphagia only to liquids ( feels as though liquid getting stuck in throat when he takes small sips. swallowing food without difficulty). There is no family history of pancreatic cancer / colon cancer. 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 Cardio/Vascular: Yes: CAD, HTN, Hyperlipdemia, NE, Other (PVD) Gastrointestinal: Yes: Diverticulitis, Diverticulosis Renal/: Yes: BPH Endocrine: Yes: Diabetes Mellitus - Past Surgical History Past Surgical History: Yes: Appendectomy, Colectomy (Partial left sided colectomy secondary to diverticulitis) Additional Surgical History: Vacular stent left leg, right knee ACL repair, B/L foot surgeries, cardiac stenting - Alcohol/Substance Use Hx Alcohol Use: Yes (occasional) - Smoking History Smoking history: Never smoked Aproximately how many cigarettes per day: 0 - Social History Usual Living Arrangement: With Spouse ADL: Independent 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 [employer] History of Recent Travel: No Home Medications - Allergies Allergies/Adverse Reactions: Allergies Allergy/AdvReac Type Severity Reaction Status Date / Time doxycycline Allergy Verified 03/01/19 18:08 hydromorphone HCl Allergy Verified 03/01/19 18:08 [From Dilaudid] - Home Medications Home Medications: Ambulatory Orders Ezetimibe [Zetia] 10 mg PO DAILY 03/02/13 Fenofibrate 54 mg PO HS 03/02/13 Glimepiride [Amaryl] 4 mg PO BID 03/02/13 Levothyroxine [Synthroid -] 200 mcg PO DAILY 03/02/13 Metoprolol Succinate [Toprol XL -] 25 mg PO HS 03/02/13 Ranolazine [Ranexa -] 1,000 mg PO DAILY 03/02/13 Alfuzosin HCl [Alfuzosin HCl ER] 10 mg PO DAILY 08/26/16 Cholecalciferol (Vitamin D3) [Vitamin D3] 4,000 unit PO HS 08/26/16 Cyanocobalamin (Vitamin B-12) [Vitamin B12] 2,500 mcg PO DAILY 08/26/16 Finasteride 5 mg PO HS 08/26/16 Galantamine Hydrobromide [Razadyne (Nf)] 8 mg PO BID 08/26/16 Magnesium Oxide [Magnesium] 500 mg PO HS 08/26/16 Ramipril 1 tab PO DAILY 08/26/16 Prasugrel Hydrochloride [Effient -] 10 mg PO DAILY #0 08/27/16 Isosorbide Mononitrate [Isosorbide Mononitrate ER] 30 mg PO BID 01/13/17 Rosuvastatin Calcium [Crestor] 40 mg PO HS 01/13/17 Sitagliptin Phos/Metformin HCl [Janumet 50-1,000 mg Tablet] 1 each PO BID Ubidecarenone [Co Q-10] 200 mg PO HS 01/13/17 Aspirin 81 mg PO DAILY 03/01/19 Diltiazem [Cardizem -] 30 mg PO BID 03/01/19 Icosapent Ethyl [Vascepa] 2 gm PO BID 03/01/19 Family Disease History - Family Disease History Family Disease History: Other: Father (: 70's: NE), Mother (: 80's: Alzheimer's Dementia), Sister (1, healthy), Daughter (1, healthy) Other Family History: No h/o of DM in immediate family members. Cousins have DM. No fam h/o colorectal cancer / pancreatic cancer Review of Systems - Review of Systems Constitutional: reports: Unintentional Wgt. Loss. denies: Chills HENT: reports: Difficult Swallowing Cardiovascular: denies: Chest Pain Respiratory: denies: Cough, SOB Gastrointestinal: reports: Abdominal Pain, Dysphagia (to liquids only). denies : Diarrhea (No chronic diarrhea complaints), Rectal Bleeding, Vomiting, Vomiting Blood Genitourinary: reports: Frequency, Urgency Physical Exam-GI Vital Signs: Vital Signs Temperature 98.2 F 03/02/19 06:54 Pulse Rate 61 03/02/19 06:54 Respiratory Rate 18 03/02/19 06:54 Blood Pressure 118/65 03/02/19 06:54 O2 Sat by Pulse Oximetry (%) 98 03/01/19 23:14 Constitutional: Yes: Calm Eyes: No: Sclera Icterus HENT: Yes: Other (No oropharyngeal candidiasis) Cardiovascular: Yes: Regular Rate and Rhythm, Murmur (2/6 systolic murmur at the LSB>RSB) Respiratory: Yes: CTA Bilaterally Gastrointestinal Inspection: Yes: Scars (RLQ scar) ...Auscultate: Yes: Normoactive Bowel Sounds ...Palpate: Yes: Soft. No: Hepatomegaly, Splenomegaly, Tenderness ...Percussion: No: Tympanitic ...Rectal Exam: Yes: Other (No external lesions, no masses, light fields stool, guaiac negative, 3+ prostate) Edema: No (No LE edema) Neurological: Yes: Alert Labs: CBC, BMP 03/02/19 07:30 03/02/19 07:30 INR, PTT INR 0.90 (0.83-1.09) 03/01/19 18:38 Hepatic Panel Total Bilirubin 0.4 mg/dL (0.2-1) 03/02/19 07:30 AST 8 U/L (15-37) L 03/02/19 07:30 ALT 17 U/L (13-61) 03/02/19 07:30 Alkaline Phosphatase 66 U/L (45-117) 03/02/19 07:30 Albumin 3.0 g/dl (3.4-5.0) L 03/02/19 07:30 Imaging - Results Cat Scan: Report Reviewed, Image Reviewed Problem List - Problems (1) Weight loss Assessment/Plan: Main complaint along with the weight loss appears to be increased urinary frequency. suspect worsening diabetic control playing roll in both urinary frequency and weight loss. Needs glycemic control Code(s): R63.4 - ABNORMAL WEIGHT LOSS (2) Elevated lipase Assessment/Plan: No clinical or CT evidence of acute pancreatitis Discontinue januvia Code(s): R74.8 - ABNORMAL LEVELS OF OTHER SERUM ENZYMES (3) Pancreatic cyst Assessment/Plan: Will need further work-up, likely EUS. Effient will need to be held for 7 days prior to any invasive testing MRI of the abdomen with and without contrast with MRCP ordered. Mr. Vee was followed by Dr. Parry, who performed his colonoscopy in 2011. Mr. 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 Dr. Parry works with dr. Lisa Mcguire, who performs EUS. [phone]. I advised that he call his office to check if his insurance is covered arrange follow-up. I have left a message to discuss with Dr. Parry as well. Code(s): K86.2 - CYST OF PANCREAS (4) Dysphagia Assessment/Plan: To liquids only. No orophayngeal thrush noted on physical exam. ? oropharyngeal dysfunction. S/S evaluation ordered Code(s): R13.10 - DYSPHAGIA, UNSPECIFIED (5) Enlarged prostate Assessment/Plan: Unclear what urological follow-up there has been. Plan per primary team Code(s): N40.0 - BENIGN PROSTATIC HYPERPLASIA WITHOUT LOWER URINRY TRACT SYMP (6) Heart murmur Assessment/Plan: patient is aware of having a murmur. Unclear what valvular disease he has. Follows with Dr. Cardenas. Follow-up per primary team Code(s): R01.1 - CARDIAC MURMUR, UNSPECIFIED
[2019-03-02] MEDS: ISOSORBIDE MONONITRATE 30 MG TAB.SR.24H (FP) PO SCH ×2 (09:36→22:39)
[2019-03-02] MEDS ORDERED: LORazepam 2 MG/ML SDV VIAL IVPUSH ONE ×2 (09:57→20:45)
[2019-03-02] MEDS ORDERED: PATIENT'S OWN MEDICATION (NON-FORMULARY) (Icosapent Ethyl [Vascepa] 2 GM) PO SCH (10:00)
[2019-03-02] MEDS ORDERED: GALANTAMINE HYDROBROMIDE 8 MG PO SCH (10:00)
[2019-03-02] MEDS ORDERED: RAMIPRIL 2.5 MG CAPSULE (FP) PO SCH (10:00)
[2019-03-02] MEDS: SODIUM CHLORIDE 1,000 ML IV SCH ×3 (10:15→22:50)
[2019-03-02] MEDS: dilTIAZem HCL 30 MG TABLET (FP) PO SCH ×2 (10:26→22:38)
[2019-03-02 10:43] LABS: EPI CELLS 0.5 /HPF (0-5/HPF); HYALINE CASTS 4 /lpf (0-8); URINE APPEARANCE CLOUDY; URINE BACTERIA 3727.3 /hpf (NEGATIVE); URINE BILIRUBIN NEGATIVE (NEGATIVE); URINE COLOR YELLOW; URINE GLUCOSE (UA) 3+ (NEGATIVE); URINE KETONE NEGATIVE (NEGATIVE); URINE LEUK ESTERASE TRACE (NEGATIVE); URINE NITRITE POSITIVE (NEGATIVE); URINE PROTEIN NEGATIVE (NEGATIVE); URINE RBC 1 /hpf (0-4); URINE UROBILINOGEN 0.2 mg/dL (0.2-1.0); URINE WBC 62 /hpf (0-5)
--- NOTE | 2019-03-02 11:52 | CONSULT ---
Admitting History and Physical - Primary Care Physician PCP: Juan Diego Shen - Admission History of Present Illness: This is a 68-year-old male, with h/o T2DM for about 10 years, never on Insulin , HTN, HLD, MA, diverticulitis with surgical resection, and alzheimers, who was sent to the ED from Dr. Parks office for admission to Dr. Shen or Dr. Faulkner for uncontrolled diabetes (BS in 400s) and a new 14 mm pancreatic lesion that was noted on CT. Patient reports recent 20 pound weight loss over the last 6 weeks Per EMR-He denies early satiety, nausea, vomiting, change in bowel habits but complains of dysphagia only to liquids. He denies coughing but feels as though liquid getting stuck in throat when he takes small sips, bubbling up. Swallowing solid food without difficulty. History Source: Patient, Family Member Limitations to Obtaining History: No Limitations, Clinical Condition (oriented. forgetful. 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 History of Recent Travel: No History - Admission Reason For Visit: PANCREATIC MASS,HYPERGLYCEMIA - Diagnostics X-ray: Report Reviewed (No acute process) - General Mental Status: Alert and Oriented, Awake and Alert, Able to Follow Commands, Forgetful (per ) Attention: Intact Ability to Follow Directions: Excellent Head/Neck Control: WFL - Hearing Hearing: Normal Speech Evaluation - Communication Primary Language: GU[place] Communication: Yes: Within Normal Limits Oral Expression Ability: Yes: No Impairment - Speech Production Able to Make Needs Known: Yes: WNL Intelligibility: Yes: WNL - Speech Characteristics Voice Loudness: Normal Voice Pitch: Yes: Normal Voice Phonatory-based Quality: Yes: Normal Speech Pattern: Normal Speech Clarity: < 100% Nasal Resonance: Normal Articulation: Yes: Precise - Language/Auditory Comprehension Follows: Yes: 2 Stage Simple Commands Observation: Comprehends Conversational Speech: Yes - Language/Verbal Expression Able to Respond to Simple Queries: Yes: WNL Able to Communicate Wants and Needs: Yes: WNL Functional Communication Status: Yes: WNL - 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: Yes: WNL Short Term Memory: Yes: WNL - Swallow Evaluation/Bedside Assessment Current Nutritional Intake: Regular, Thin Liquids Oral Secretions: Yes: WFL Dentition: Yes: Adequate Facial Symmetry at Rest: Symmetrical Facial Symmetry on Retraction: Symmetrical Sensation: Normal Against Resistance Opening: Normal Against Resistance Closing: Normal Pucker Lips: Normal Smile: Normal Lingual Movement: Normal, Symmetric Lingual Speed of Movement: Normal Lingual Movement Strgth Against Opposition: Normal Lingual Movement Characteristics: Normal Laryngeal Elevation: WFL Laryngeal Movement: Able to Palpate Bolus Size: WFL Labial Seal: WFL Chewing: WFL Oral Prep Time: WFL A-P Transit: WFL Pocketing: None Timing of Swallow: WFL Coughing/Throat Clear: Yes (larger sips of thin liquid) Recommendations - Speech Evaluation, Impression/Plan Impression: Upon review with pt and his , during the last 2 weeks Pt reports that he started having difficulty with liquids. When he drinks single sips, he does fine. However,with larger sips, he feels like his throat closes up and then he coughs. This is most likely aspiration. He denies Odynophagia, vocal changes, congestion, h/o PNA. Upon further review, pt drinks carbonated drinks, eats tomatoes, often reclines after eating. I suspect Laryngopharyngeal Reflux. - Dysphagia Impressions/Plan Swallowing Skills: Impaired Dysphagia Impressions: Mild Impairment, Suspect Aspiration *Silent aspiration: cannot be R/O at bedside Dysphagia Treatment Plan: Small Bites, Chin Tuck/Down, 1/2 tsp. at a time, OOB for meals, OOB for 1 h. after meals, Other (Pt educated on LPR. He was advised to remain upright for atleast 1 hour after meals and avoid PO intake for 3 hours before bedtime. Eliminate soda, tomatoes, spicy, garlic, mints, fernando. Mouth care atleast BID. Hand out provided. Consider Alkaline water/ Mediterranean diet. Small sips of liquid, chin tucked down, never extended.) Recommendations: ENT Consult (as out pt. r/o LPR), Modified Barium Swallow (if symptoms persist, congestion, fever) - Recommendations Diet Consistency: Regular Medication Administration: Whole with water Liquids: Thin Liquids (single sips)
--- NOTE | 2019-03-02 13:48 | HP ---
CHIEF COMPLAINT: abdominal pain PCP: Dr. Cook HISTORY OF PRESENT ILLNESS: 68 y/o M, PMH of uncontrolled DM type 2, HTN, Hypothyroidism, multiple polyps, hemorrhoids, presents to the ED, referred by Dr. Cook, c/o of non-radiating, lower abdominal pain of 4 weeks duration associated with fatigue, difficultly swallowing, bloody diarrhea, polydipsia and polyuria. Pt said the abdominal pain started spontaneously and has worsened since onset. Pt reports pain is dull in nature and constant throughout the days since onset. Pain is worsened with eat meals, causing him to lose his appetite. He was prescribed Protonix by Dr. Cook which had temporarily relived some pain. Pt also reports new onset dysphasia of 4 weeks duration, which is described as food getting stuck in his throat and relieved by coughing. Pt also gives history of intermittent bloody diarrhea, bright red in color, which he contributes to hemorrhoids. Pt also reports 20Ibs unintentional weight loss. Currently pt is stable without c/o and rates the pain 2/10. Pt verifies that he is not compliant with diet and has had uncontrolled glucose levels and HbA1c around 8-10. Denies headaches, fevers, chills, n/v, sob, chest pain. ER course was notable for: (1) CT- cystic lesions of the uncinate process suspicious for cystic neoplasm. Calcifications suggesting chronic pancreatitis. (2)Lipase- 2575 (3)Glucose 723 Recent Travel: PAST MEDICAL HISTORY: DM type 2, HTN, NILES, Coronary artery disease- 6 stents placed, hypothyrodism, polyps, hemorrhoids PAST SURGICAL HISTORY: Appendectomy, stent placements-x6, hip left surgery, shoulder right Colonoscopy- last done 2 yrs Social History: Smoking: non-smoker Alcohol: drinks beers Drugs: Family History: noncontirbutory Allergies Dilaudid- itching, Doxycycline- hives doxycycline Allergy (Verified 03/01/19 18:08) hydromorphone HCl [From Dilaudid] Allergy (Verified 03/01/19 18:08) HOME MEDICATIONS: Home Medications Medication Instructions Recorded Ezetimibe [Zetia] 10 mg PO DAILY 03/02/13 Fenofibrate 54 mg PO HS 03/02/13 Glimepiride [Amaryl] 4 mg PO BID 03/02/13 Levothyroxine [Synthroid -] 200 mcg PO DAILY 03/02/13 Metoprolol Succinate [Toprol XL -] 25 mg PO BID 03/02/13 Ranolazine [Ranexa -] 1,000 mg PO DAILY 03/02/13 Alfuzosin HCl [Alfuzosin HCl ER] 10 mg PO DAILY 08/26/16 Cholecalciferol (Vitamin D3) 4,000 unit PO HS 08/26/16 [Vitamin D3] Cyanocobalamin (Vitamin B-12) 2,500 mcg PO DAILY 08/26/16 [Vitamin B12] Finasteride 5 mg PO HS 08/26/16 Galantamine Hydrobromide [Razadyne 8 mg PO BID 08/26/16 (Nf)] Magnesium Oxide [Magnesium] 500 mg PO HS 08/26/16 Ramipril 1 tab PO DAILY 08/26/16 Prasugrel Hydrochloride [Effient -] 10 mg PO DAILY #0 08/27/16 Isosorbide Mononitrate [Isosorbide 30 mg PO DAILY 01/13/17 Mononitrate ER] Rosuvastatin Calcium [Crestor] 40 mg PO HS 01/13/17 Sitagliptin Phos/Metformin HCl 1 each PO DAILY 01/13/17 [Janumet 50-1,000 mg Tablet] Ubidecarenone [Co Q-10] 200 mg PO HS 01/13/17 Aspirin 81 mg PO DAILY 03/01/19 Diltiazem [Cardizem -] 30 mg PO BID 03/01/19 Icosapent Ethyl [Vascepa] 2 gm PO BID 03/01/19 REVIEW OF SYSTEMS CONSTITUTIONAL: Admits to weight loss Absent: fever, chills, diaphoresis HEENT: Admits difficulty swallowing Absent: rhinorrhea, nasal congestion, throat pain, visual changes CARDIOVASCULAR: Absent: chest pain, syncope, palpitations, irregular heart rate, lightheadedness , peripheral edema RESPIRATORY: Absent: cough, shortness of breath, dyspnea with exertion, orthopnea, wheezing, stridor, hemoptysis GASTROINTESTINAL: Admits abdominal pain, nausea, vomiting, melena Absent: abdominal distension,diarrhea, constipation, hematochezia ENDOCRINE: Absent: unexplained weight gain, NEUROLOGIC: Absent: headache, focal weakness or paresthesias, dizziness, unsteady gait, seizure, mental status changes, bladder or bowel incontinence Vitals Last Vital Signs Temp Pulse Resp BP Pulse Ox 98.2 F 61 18 118/65 98 03/02/19 06:54 03/02/19 06:54 03/02/19 09:00 03/02/19 06:54 03/02/19 09:00 Labs CBC, BMP 03/02/19 07:30 03/02/19 07:30 Urine Test Results Urine Color Yellow 03/01/19 19:47 Urine Appearance Clear 03/01/19 19:47 Urine pH 5.0 (5.0-8.0) 03/01/19 19:47 Ur Specific Sherman 1.036 (1.010-1.035) H 03/01/19 19:47 Urine Protein Negative (NEGATIVE) 03/01/19 19:47 Urine Glucose (UA) 3+ (NEGATIVE) H 03/01/19 19:47 Urine Ketones Negative (NEGATIVE) 03/01/19 19:47 Urine Blood Negative (NEGATIVE) 03/01/19 19:47 Urine Nitrite Negative (NEGATIVE) 03/01/19 19:47 Urine Bilirubin Negative (NEGATIVE) 03/01/19 19:47 Ur Leukocyte Esterase Negative (NEGATIVE) 03/01/19 19:47 PHYSICAL EXAMINATION GENERAL: Awake, alert, and fully oriented, in no acute distress. HEAD: Normal with no signs of trauma. EYES: PERRLA, EOMI NECK: supple, no bruit, no thyroid fullness LUNGS: Breath sounds equal, clear to auscultation bilaterally. No wheezes, and no crackles. HEART: Regular rate and rhythm, normal S1 and S2 without murmur, rub or gallop. ABDOMEN: Lower abdomen tender to palpation. ND, BS+, no bruit LOWER EXTREMITIES: 2+ pulses, warm, well-perfused. No calf tenderness. No peripheral edema. ASSESSMENT/PLAN: 68 y/o M, presents to the ED c/o of lower quadrant abdominal pain of 4 week duration associated with dysphagia, fatigue, diarrhea and polyuria. 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 Kozicky #Hypothyroidism TSH, Total T3+4 ordered f/u results #Pancreatic malignancy GI consult- possible MRI F/u #DVT ppx Heparin 5000 U FEN: Low Sodium, Diabetic diet Dispo: monitor potassium, glucose control, f/u with consults ATTENDING PHYSICIAN STATEMENT I saw and evaluated the patient. I reviewed the resident's note and discussed the case with the resident. I agree with the resident's findings and plan as documented. SUBJECTIVE: OBJECTIVE: ASSESSMENT AND PLAN: Visit type - Emergency Visit Emergency Visit: Yes ED Registration Date: 03/01/19 Care time: The patient presented to the Emergency Department on the above date and was hospitalized for further evaluation of their emergent condition. - New Patient This patient is new to me today: Yes Date on this admission: 03/04/19 - Critical Care Critical Care patient: No ATTENDING PHYSICIAN STATEMENT I saw and evaluated the patient. I reviewed the resident's note and discussed the case with the resident. I agree with the resident's findings and plan as documented. SUBJECTIVE: OBJECTIVE: ASSESSMENT AND PLAN:
--- NOTE | 2019-03-02 14:15 | EKG ---
Test Reason : Blood Pressure : / mmHG Vent. Rate : 079 BPM Atrial Rate : 079 BPM P-R Int : 210 ms QRS Dur : 100 ms QT Int : 406 ms P-R-T Axes : 031 -05 024 degrees QTc Int : 465 ms SINUS RHYTHM WITH 1ST DEGREE A-V BLOCK ANTEROSEPTAL INFARCT , AGE UNDETERMINED ABNORMAL ECG WHEN COMPARED WITH ECG OF 15-JUN-2006 14:45, ANTEROSEPTAL INFARCT IS NOW PRESENT Confirmed by SUKHJINDER TRAYLOR MD ([id number]) on 03/02/2019 2:15:37 PM Referred By: Confirmed By:SUKHJINDER TRAYLOR MD
--- NOTE | 2019-03-02 15:36 | PN ---
Teaching Attending Note Name of Resident: Darnell Soria ATTENDING PHYSICIAN STATEMENT I saw and evaluated the patient. I reviewed the resident's note and discussed the case with the resident. I agree with the resident's findings and plan as documented with exceptions below. SUBJECTIVE: Patient seen and examined. denies any nausea, vomiting, abdominal pain. Still with polyuria, polydypsia. Does not check blood sugars at home. OBJECTIVE: Vital Signs Period Temp Pulse Resp BP Sys/Casiano Pulse Ox Last 24 Hr 97.9 F-98.7 F 61-84 18-20 110-153/60-72 98-100 Intake & Output 02/27/19 02/28/19 03/01/19 03/02/19 23:59 23:59 23:59 23:59 Intake Total 1000 Balance 1000 Weight 223 lb 4.8 oz 223 lb General: sitting in bed in no acute distress Chest: CTAB, no rales or wheezing Abdomen:soft, NT throughout, ND, pos bowel sounds Extremities: no edema Home Medications Medication Instructions Recorded Ezetimibe [Zetia] 10 mg PO DAILY 03/02/13 Fenofibrate 54 mg PO HS 03/02/13 Glimepiride [Amaryl] 4 mg PO BID 03/02/13 Levothyroxine [Synthroid -] 200 mcg PO DAILY 03/02/13 Metoprolol Succinate [Toprol XL -] 25 mg PO HS 03/02/13 Ranolazine [Ranexa -] 1,000 mg PO DAILY 03/02/13 Alfuzosin HCl [Alfuzosin HCl ER] 10 mg PO DAILY 08/26/16 Cholecalciferol (Vitamin D3) 4,000 unit PO HS 08/26/16 [Vitamin D3] Cyanocobalamin (Vitamin B-12) 2,500 mcg PO DAILY 08/26/16 [Vitamin B12] Finasteride 5 mg PO HS 08/26/16 Galantamine Hydrobromide [Razadyne 8 mg PO BID 08/26/16 (Nf)] Magnesium Oxide [Magnesium] 500 mg PO HS 08/26/16 Ramipril 1 tab PO DAILY 08/26/16 Prasugrel Hydrochloride [Effient -] 10 mg PO DAILY #0 08/27/16 Isosorbide Mononitrate [Isosorbide 30 mg PO BID 01/13/17 Mononitrate ER] Rosuvastatin Calcium [Crestor] 40 mg PO HS 01/13/17 Sitagliptin Phos/Metformin HCl 1 each PO BID 01/13/17 [Janumet 50-1,000 mg Tablet] Ubidecarenone [Co Q-10] 200 mg PO HS 01/13/17 Aspirin 81 mg PO DAILY 03/01/19 Diltiazem [Cardizem -] 30 mg PO BID 03/01/19 Icosapent Ethyl [Vascepa] 2 gm PO BID 03/01/19 Active Medications Acetaminophen (Tylenol -) 650 mg PO Q4H PRN PRN Reason: PAIN Aspirin (Asa -) 81 mg PO DAILY [facility] Last Admin: 03/02/19 09:31 Dose: 81 mg Cholecalciferol (Vitamin D3 -) 4,000 unit PO HS [facility] Diltiazem HCl (Cardizem -) 30 mg PO BID [facility] Last Admin: 03/02/19 10:26 Dose: 30 mg Ezetimibe (Zetia -) 10 mg PO DAILY [facility] Last Admin: 03/02/19 09:33 Dose: 10 mg Fenofibric Acid (Trilipix -) 45 mg PO HS [facility] Finasteride (Proscar -) 5 mg PO [facility] Heparin Sodium (Porcine) (Heparin -) 5,000 unit SQ Q8H-IV [facility] Last Admin: 03/02/19 09:37 Dose: 5,000 unit Sodium Chloride (Normal Saline -) 1,000 mls @ 125 mls/hr IV ASDIR [facility] Last Admin: 03/02/19 10:15 Dose: 125 mls/hr Insulin Aspart (Novolog Vial Sliding Scale -) 0 vial SQ ACHS [facility]; Protocol Last Admin: 03/02/19 11:21 Dose: 6 units Isosorbide Mononitrate (Imdur -) 30 mg PO BID [facility] Last Admin: 03/02/19 09:36 Dose: 30 mg Levothyroxine Sodium (Synthroid -) 200 mcg PO DAILY@0700 [facility] Last Admin: 03/02/19 06:29 Dose: 200 mcg Lorazepam (Ativan Injection -) 1 mg IVPUSH ASDIR ONE Stop: 03/02/19 15:39 Magnesium Oxide (Mag-Ox -) 400 mg PO [facility] Metoprolol Succinate (Toprol Xl -) 25 mg PO [facility] Non-Formulary Medication (Galantamine Hydrobromide [Razadyne (Nf)]) 8 mg PO BID [facility] Non-Formulary Medication (Icosapent Ethyl [Vascepa]) 2 gm PO BID [facility] Prasugrel (Effient -) 10 mg PO DAILY [facility] Stop: 03/06/19 10:01 Last Admin: 03/02/19 09:30 Dose: 10 mg Ramipril (Altace -) 2.5 mg PO DAILY [facility] Last Admin: 03/02/19 09:34 Dose: 2.5 mg Rosuvastatin Calcium (Crestor -) 40 mg PO [facility] Tamsulosin HCl (Flomax -) 0.4 mg PO DAILY@0830 [facility] Last Admin: 03/02/19 09:32 Dose: 0.4 mg Laboratory Results - last 24 hr 03/01/19 03/01/19 03/01/19 10:00 18:38 18:38 WBC 7.6 RBC 4.11 Hgb 12.9 Hct 37.2 MCV 90.5 MCH 31.4 MCHC 34.7 RDW 13.4 Plt Count 167 D MPV 10.3 Absolute Neuts (auto) 4.2 Neutrophils % 54.4 Lymphocytes % 21.6 Monocytes % 19.4 H Eosinophils % 3.3 Basophils % 1.3 Nucleated RBC % 0 PT with INR INR PTT (Actin FS) VBG pH POC VBG pCO2 POC VBG pO2 VBG HCO3 VBG O2 Sat (Saadia) VBG Base Excess Sodium Potassium Chloride Carbon Dioxide Anion Gap BUN Creatinine Est GFR (CKD-EPI)AfAm Est GFR (CKD-EPI)NonAf POC Glucometer Random Glucose Hemoglobin A1c % Calcium Phosphorus Magnesium Total Bilirubin AST ALT Alkaline Phosphatase Creatine Kinase 110 Troponin I < 0.02 Total Protein Albumin Triglycerides Cholesterol Total LDL Cholesterol HDL Cholesterol Lipase TSH Resin T3 Uptake Urine Color Yellow Urine Appearance Cloudy Urine pH 5.0 Ur Specific Mikana 1.025 Urine Protein Negative Urine Glucose (UA) 3+ H Urine Ketones Negative Urine Blood Trace Urine Nitrite Positive H Urine Bilirubin Negative Urine Urobilinogen 0.2 Ur Leukocyte Esterase Trace Urine WBC (Auto) 62 Urine RBC (Auto) 1 Urine Casts (Auto) 4 U Epithel Cells (Auto) 0.5 Urine Bacteria (Auto) 3727.3 Acetone, Qual Blood Type Antibody Screen 03/01/19 03/01/19 03/01/19 18:38 18:38 18:38 WBC RBC Hgb Hct MCV MCH MCHC RDW Plt Count MPV Absolute Neuts (auto) Neutrophils % Lymphocytes % Monocytes % Eosinophils % Basophils % Nucleated RBC % PT with INR 10.60 INR 0.90 PTT (Actin FS) VBG pH POC VBG pCO2 POC VBG pO2 VBG HCO3 VBG O2 Sat (Saadia) VBG Base Excess Sodium 130 L Potassium 4.4 Chloride 99 Carbon Dioxide 20 L Anion Gap 11 BUN 29.1 H Creatinine 2.1 H Est GFR (CKD-EPI)AfAm 36.13 Est GFR (CKD-EPI)NonAf 31.18 POC Glucometer Random Glucose 723 H* Hemoglobin A1c % Calcium 8.7 Phosphorus 3.6 Magnesium 2.0 Total Bilirubin 0.4 AST 14 L ALT 23 Alkaline Phosphatase 85 Creatine Kinase Troponin I Total Protein 6.6 Albumin 3.6 Triglycerides Cholesterol Total LDL Cholesterol HDL Cholesterol Lipase 2575 H TSH Resin T3 Uptake Urine Color Urine Appearance Urine pH Ur Specific Mikana Urine Protein Urine Glucose (UA) Urine Ketones Urine Blood Urine Nitrite Urine Bilirubin Urine Urobilinogen Ur Leukocyte Esterase Urine WBC (Auto) Urine RBC (Auto) Urine Casts (Auto) U Epithel Cells (Auto) Urine Bacteria (Auto) Acetone, Qual Blood Type O POSITIVE Antibody Screen Negative 03/01/19 03/01/19 03/01/19 18:38 19:47 20:03 WBC RBC Hgb Hct MCV MCH MCHC RDW Plt Count MPV Absolute Neuts (auto) Neutrophils % Lymphocytes % Monocytes % Eosinophils % Basophils % Nucleated RBC % PT with INR INR PTT (Actin FS) 28.6 VBG pH POC VBG pCO2 POC VBG pO2 VBG HCO3 VBG O2 Sat (Saadia) VBG Base Excess Sodium Potassium Chloride Carbon Dioxide Anion Gap BUN Creatinine Est GFR (CKD-EPI)AfAm Est GFR (CKD-EPI)NonAf POC Glucometer Random Glucose Hemoglobin A1c % Calcium Phosphorus Magnesium Total Bilirubin AST ALT Alkaline Phosphatase Creatine Kinase Troponin I Total Protein Albumin Triglycerides Cholesterol Total LDL Cholesterol HDL Cholesterol Lipase TSH Resin T3 Uptake Urine Color Yellow Urine Appearance Clear Urine pH 5.0 Ur Specific Mikana 1.036 H Urine Protein Negative Urine Glucose (UA) 3+ H Urine Ketones Negative Urine Blood Negative Urine Nitrite Negative Urine Bilirubin Negative Urine Urobilinogen 0.2 Ur Leukocyte Esterase Negative Urine WBC (Auto) Urine RBC (Auto) Urine Casts (Auto) U Epithel Cells (Auto) Urine Bacteria (Auto) Acetone, Qual Negative Blood Type Antibody Screen 03/01/19 03/01/19 03/01/19 20:03 21:57 22:56 WBC RBC Hgb Hct MCV MCH MCHC RDW Plt Count MPV Absolute Neuts (auto) Neutrophils % Lymphocytes % Monocytes % Eosinophils % Basophils % Nucleated RBC % PT with INR INR PTT (Actin FS) VBG pH 7.36 POC VBG pCO2 38.2 L POC VBG pO2 29.3 L VBG HCO3 21.0 L VBG O2 Sat (Saadia) 54.3 L VBG Base Excess -3.5 L Sodium 139 Potassium 3.9 Chloride 111 H Carbon Dioxide 23 Anion Gap 6 L BUN 26.0 H Creatinine 1.6 H Est GFR (CKD-EPI)AfAm 50.20 Est GFR (CKD-EPI)NonAf 43.31 POC Glucometer 303 Random Glucose 254 H Hemoglobin A1c % Calcium 8.0 L Phosphorus Magnesium Total Bilirubin AST ALT Alkaline Phosphatase Creatine Kinase Troponin I Total Protein Albumin Triglycerides 520 H Cholesterol 92 Total LDL Cholesterol 28 HDL Cholesterol 22 L Lipase TSH Resin T3 Uptake Urine Color Urine Appearance Urine pH Ur Specific Mikana Urine Protein Urine Glucose (UA) Urine Ketones Urine Blood Urine Nitrite Urine Bilirubin Urine Urobilinogen Ur Leukocyte Esterase Urine WBC (Auto) Urine RBC (Auto) Urine Casts (Auto) U Epithel Cells (Auto) Urine Bacteria (Auto) Acetone, Qual Blood Type Antibody Screen 03/01/19 03/01/19 03/02/19 22:56 22:56 02:24 WBC RBC Hgb Hct MCV MCH MCHC RDW Plt Count MPV Absolute Neuts (auto) Neutrophils % Lymphocytes % Monocytes % Eosinophils % Basophils % Nucleated RBC % PT with INR INR PTT (Actin FS) VBG pH POC VBG pCO2 POC VBG pO2 VBG HCO3 VBG O2 Sat (Saadia) VBG Base Excess Sodium Potassium Chloride Carbon Dioxide Anion Gap BUN Creatinine Est GFR (CKD-EPI)AfAm Est GFR (CKD-EPI)NonAf POC Glucometer 293 Random Glucose Hemoglobin A1c % 10.3 H Calcium Phosphorus Magnesium Total Bilirubin AST ALT Alkaline Phosphatase Creatine Kinase Troponin I Total Protein Albumin Triglycerides Cancelled Cholesterol Cancelled Total LDL Cholesterol Cancelled HDL Cholesterol Cancelled Lipase TSH Resin T3 Uptake Urine Color Urine Appearance Urine pH Ur Specific Mikana Urine Protein Urine Glucose (UA) Urine Ketones Urine Blood Urine Nitrite Urine Bilirubin Urine Urobilinogen Ur Leukocyte Esterase Urine WBC (Auto) Urine RBC (Auto) Urine Casts (Auto) U Epithel Cells (Auto) Urine Bacteria (Auto) Acetone, Qual Blood Type Antibody Screen 03/02/19 03/02/19 03/02/19 06:24 07:30 07:30 WBC 9.0 RBC 3.67 L Hgb 11.3 L Hct 32.1 L MCV 87.4 MCH 30.9 MCHC 35.4 RDW 13.4 Plt Count 152 MPV 10.0 Absolute Neuts (auto) 5.2 Neutrophils % 57.2 Lymphocytes % 22.3 Monocytes % 12.9 H Eosinophils % 6.4 H D Basophils % 1.2 Nucleated RBC % 0 PT with INR INR PTT (Actin FS) VBG pH POC VBG pCO2 POC VBG pO2 VBG HCO3 VBG O2 Sat (Saadia) VBG Base Excess Sodium 139 Potassium 4.1 Chloride 109 H Carbon Dioxide 22 Anion Gap 8 BUN 24.1 H Creatinine 1.3 Est GFR (CKD-EPI)AfAm 64.52 Est GFR (CKD-EPI)NonAf 55.67 POC Glucometer 308 Random Glucose 314 H* Hemoglobin A1c % Calcium 8.6 Phosphorus Magnesium Total Bilirubin 0.4 AST 8 L ALT 17 Alkaline Phosphatase 66 Creatine Kinase Troponin I Total Protein 5.5 L Albumin 3.0 L Triglycerides Cholesterol Total LDL Cholesterol HDL Cholesterol Lipase TSH 2.28 Resin T3 Uptake 36.9 Urine Color Urine Appearance Urine pH Ur Specific Mikana Urine Protein Urine Glucose (UA) Urine Ketones Urine Blood Urine Nitrite Urine Bilirubin Urine Urobilinogen Ur Leukocyte Esterase Urine WBC (Auto) Urine RBC (Auto) Urine Casts (Auto) U Epithel Cells (Auto) Urine Bacteria (Auto) Acetone, Qual Blood Type Antibody Screen 03/02/19 11:18 WBC RBC Hgb Hct MCV MCH MCHC RDW Plt Count MPV Absolute Neuts (auto) Neutrophils % Lymphocytes % Monocytes % Eosinophils % Basophils % Nucleated RBC % PT with INR INR PTT (Actin FS) VBG pH POC VBG pCO2 POC VBG pO2 VBG HCO3 VBG O2 Sat (Saadia) VBG Base Excess Sodium Potassium Chloride Carbon Dioxide Anion Gap BUN Creatinine Est GFR (CKD-EPI)AfAm Est GFR (CKD-EPI)NonAf POC Glucometer 271 Random Glucose Hemoglobin A1c % Calcium Phosphorus Magnesium Total Bilirubin AST ALT Alkaline Phosphatase Creatine Kinase Troponin I Total Protein Albumin Triglycerides Cholesterol Total LDL Cholesterol HDL Cholesterol Lipase TSH Resin T3 Uptake Urine Color Urine Appearance Urine pH Ur Specific Mikana Urine Protein Urine Glucose (UA) Urine Ketones Urine Blood Urine Nitrite Urine Bilirubin Urine Urobilinogen Ur Leukocyte Esterase Urine WBC (Auto) Urine RBC (Auto) Urine Casts (Auto) U Epithel Cells (Auto) Urine Bacteria (Auto) Acetone, Qual Blood Type Antibody Screen CT A/P results reviewed ASSESSMENT AND PLAN: 68 yom with PMHx of DM type 2, HTN, NILES, Coronary artery disease- 6 stents placed, hypothyrodism, polyps, hemorrhoids admitted with severe hyperglycemia, and ongoing abdominal pain with concern for pancreatic mass -Severe hyperglycemia -Hypovolumia -NIDA, suspect from severe hypovolumia from osmotic diuresis +/- poor oral intake -Abdominal pain,c oncern for pancreatic mass/Chronic pancreatitis -Elevated lipase, low clinical suspicion for acute pancreatitis -CAD s/p multiple PCI -HTN -NILES -Hypothyroidism -Polyps -Haemorrhoids Plan: Blood sugars input. Endocrine consult, input appreciated. A1c noted, Suspect long standing poor control. Discussed with patient, will likely need insulin on dc. Diabetic education, nutrition consult. NIDA resolved. Continue IVF. Hold ACEi. GI input noted, MRCP. Continue ASA/Prasugrel/imdur/statin/ezetemibe/metoprolol. DVTPPX heparin Dispo pending clinical improvement. Discussed with patient and nursing. .
[2019-03-02] MEDS ORDERED: INSULIN (LEVEMIR) 100 UNITS/ML UNITS SQ SCH (22:00)
[2019-03-02] MEDS: MAGNESIUM OXIDE 400 MG TABLET (FP) PO SCH (22:38)
[2019-03-02] MEDS: metoPROLOL SUCCINATE 25 MG TAB.SR.24H (FP) PO SCH (22:38)
[2019-03-02] MEDS: CHOLECALCIFEROL (VIT D3) 1,000 UNIT (25 MCG) TABLET PO SCH (22:38)
[2019-03-02] MEDS: ROSUVASTATIN CA 20 MG TABLET (FP) PO SCH (22:39)
[2019-03-02] MEDS: FINASTERIDE 5 MG TABLET (FP) PO SCH (22:39)
[2019-03-02] MEDS: FENOFIBRIC ACID 45 MG CAP PO SCH (22:48)
[2019-03-03] MEDS: HEPARIN NA (PORCINE) 5,000 UNITS/ML 1ML VIAL SQ SCH ×3 (03:57→17:39)
[2019-03-03] MEDS: INSULIN SLIDING SCALE (NOVOLOG) 1 VIAL SQ SCH ×3 (06:55→17:52)
[2019-03-03] MEDS: LEVOTHYROXINE NA 200 MCG TABLET PO SCH (06:55)
[2019-03-03] MEDS: TAMSULOSIN HCL 0.4 MG CAP PO SCH (08:36)
[2019-03-03 08:47] LABS: BILIRUBIN,TOTAL 0.4 mg/dL (0.2-1); BLOOD UREA NITROGEN 15.8 mg/dL (7-18); CALCIUM 8.7 mg/dL (8.5-10.1); CREATININE 1.1 mg/dL (0.55-1.3); MAGNESIUM 1.7 mg/dL (1.8-2.4); PHOSPHOROUS 2.9 mg/dL (2.5-4.9); TOT PROT 5.4 g/dl (6.4-8.2)
[2019-03-03 09:16] LABS: BASO % 1.1 % (0-2.0); EOS % 7.4 % (0-4.5); HEMATOCRIT 32.6 % (35.4-49); HEMOGLOBIN 11.6 GM/dL (11.7-16.9); LYMPH % 29.5 % (8-40); MCHC 35.6 g/dl (32.0-35.9); MEAN PLT VOLUME 10.1 fl (7.5-11.1); MONO % 10.4 % (3.8-10.2); NEUT % 51.6 % (42.8-82.8); PLATELET COUNT 170 K/MM3 (134-434); RBC 3.75 M/mm3 (4.00-5.60); RDW 13.4 % (11.9-15.9); WHITE BLOOD COUNT 8.1 K/mm3 (4.0-10.0)
[2019-03-03] MEDS ORDERED: PT OWN MED DRAWER 7, Y5N ONE (10:41)
[2019-03-03] MEDS: ISOSORBIDE MONONITRATE 30 MG TAB.SR.24H (FP) PO SCH ×2 (10:53→21:03)
[2019-03-03] MEDS: EZETIMIBE 10 MG TABLET (FP) PO SCH (10:53)
[2019-03-03] MEDS: dilTIAZem HCL 30 MG TABLET (FP) PO SCH ×2 (10:53→21:04)
[2019-03-03] MEDS: ASPIRIN 81 MG CHEWABLE TABLETS PO SCH (11:32)
[2019-03-03] MEDS: PRASUGREL HCL 10 MG TAB PO SCH (11:33)
[2019-03-03] MEDS ORDERED: INSULIN (NOVOLOG) ASPART 100 UNITS/ML 10ML VIAL ONE (11:43)
[2019-03-03] MEDS: SODIUM CHLORIDE 1,000 ML IV SCH ×3 (11:44→21:01)
--- NOTE | 2019-03-03 12:06 | PN ---
Progress Note (short form) - Note Progress Note: Feels better Improving blood sugar Vital Signs Period Temp Pulse Resp BP Sys/Casiano Pulse Ox Last 24 Hr 97.7 F-98.6 F 54-74 20-20 91-145/49-74 97 PE: AOx3 Neck: Supple, No JVD HEENT: EOMI Lungs: CTA CVS: S1S2 Abd: Benign Ext: No edema Neuro: No focal deficit CMP Sodium 141 mmol/L (136-145) 03/03/19 07:24 Potassium 4.0 mmol/L (3.5-5.1) 03/03/19 07:24 Chloride 110 mmol/L (98-107) H 03/03/19 07:24 Carbon Dioxide 24 mmol/L (21-32) 03/03/19 07:24 Anion Gap 7 MMOL/L (8-16) L 03/03/19 07:24 BUN 15.8 mg/dL (7-18) 03/03/19 07:24 Creatinine 1.1 mg/dL (0.55-1.3) 03/03/19 07:24 Est GFR (CKD-EPI)AfAm 78.97 03/03/19 07:24 Est GFR (CKD-EPI)NonAf 68.13 03/03/19 07:24 POC Glucometer 239 UNITS (80-120) 03/03/19 11:26 Random Glucose 205 mg/dL (74-106) H 03/03/19 07:24 Hemoglobin A1c % 10.3 % (4.2-6.3) H 03/01/19 22:56 Calcium 8.7 mg/dL (8.5-10.1) 03/03/19 07:24 Phosphorus 2.9 mg/dL (2.5-4.9) 03/03/19 07:24 Magnesium 1.7 mg/dL (1.8-2.4) L 03/03/19 07:24 Total Bilirubin 0.4 mg/dL (0.2-1) 03/03/19 07:24 AST 7 U/L (15-37) L 03/03/19 07:24 ALT 15 U/L (13-61) 03/03/19 07:24 Alkaline Phosphatase 64 U/L (45-117) 03/03/19 07:24 Creatine Kinase 110 U/L (26-308) 03/01/19 18:38 Troponin I < 0.02 ng/ml (0.00-0.05) 03/01/19 18:38 Total Protein 5.4 g/dl (6.4-8.2) L 03/03/19 07:24 Albumin 3.0 g/dl (3.4-5.0) L 03/03/19 07:24 Triglycerides 520 mg/dL (0-150) H 03/01/19 22:56 Cholesterol 92 mg/dL (50-200) 03/01/19 22:56 Total LDL Cholesterol 28 mg/dL (5-100) 03/01/19 22:56 HDL Cholesterol 22 mg/dL (40-60) L 03/01/19 22:56 Lipase 2575 U/L (73-393) H 03/01/19 18:38 TSH 2.28 uIU/ml (0.358-3.74) 03/02/19 07:30 Resin T3 Uptake 36.9 % (33-40) 03/02/19 07:30 Current Medications Generic Name Dose Route Start Last Admin Trade Name Freq PRN Reason Stop Dose Admin Acetaminophen 650 mg 03/01/19 22:25 Tylenol - PO Q4H PRN PAIN Aspirin 81 mg 03/02/19 10:00 03/03/19 11:32 Asa - PO 81 mg DAILY [facility] Administration Cholecalciferol 4,000 unit 03/02/19 22:00 03/02/19 22:38 Vitamin D3 - PO 4,000 unit HS [facility] Administration Diltiazem HCl 30 mg 03/02/19 10:00 03/03/19 10:53 Cardizem - PO 30 mg BID [facility] Administration Ezetimibe 10 mg 03/02/19 10:00 03/03/19 10:53 Zetia - PO 10 mg DAILY [facility] Administration Fenofibric Acid 45 mg 03/02/19 22:00 03/02/19 22:48 Trilipix - PO 45 mg HS [facility] Administration Finasteride 5 mg 03/02/19 22:00 03/02/19 22:39 Proscar - PO 5 mg HS [facility] Administration Heparin Sodium (Porcine) 5,000 unit 03/02/19 02:00 03/03/19 11:32 Heparin - SQ 5,000 unit Q8H-IV [facility] Administration Sodium Chloride 1,000 mls @ 125 mls/hr 03/01/19 22:30 03/03/19 11:44 Normal Saline - IV 125 mls/hr ASDIR [facility] Administration Insulin Aspart 0 vial 03/02/19 07:00 03/03/19 06:55 Novolog Vial Sliding Scale - SQ 2 units ACHS [facility] Administration Protocol Insulin Detemir 10 units 03/02/19 22:00 03/02/19 22:48 Levemir Vial SQ 10 units HS [facility] Administration Isosorbide Mononitrate 30 mg 03/02/19 10:00 03/03/19 10:53 Imdur - PO 30 mg BID [facility] Administration Levothyroxine Sodium 200 mcg 03/02/19 07:00 03/03/19 06:55 Synthroid - PO 200 mcg DAILY@0700 [facility] Administration Magnesium Oxide 400 mg 03/02/19 22:00 03/02/19 22:38 Mag-Ox - PO 400 mg HS [facility] Administration Metoprolol Succinate 25 mg 03/02/19 22:00 03/02/19 22:38 Toprol Xl - PO 25 mg HS [facility] Administration Non-Formulary Medication 8 mg 03/02/19 10:00 Galantamine Hydrobromide [Razadyne (Nf)] PO BID [facility] Non-Formulary Medication 2 gm 03/02/19 10:00 Icosapent Ethyl [Vascepa] PO BID [facility] Prasugrel 10 mg 03/02/19 10:00 03/03/19 11:33 Effient - PO 03/06/19 10:01 10 mg DAILY [facility] Administration Rosuvastatin Calcium 40 mg 03/02/19 22:00 03/02/19 22:39 Crestor - PO 40 mg HS [facility] Administration Tamsulosin HCl 0.4 mg 03/02/19 08:30 03/03/19 08:36 Flomax - PO 0.4 mg DAILY@0830 [facility] Administration AP: T2DM with hyperglycemia Pancreatic lesion Wt loss Hypothyroidism HTN CAD Pancreatic cyst: MRI report reviewed BGM QACHS Hold oral hypoglycemia meds for now Increase NOvolog SS coverage Increase Levemir 12 units daily at HS Will f/u
[2019-03-03] MEDS ORDERED: MAGNESIUM SULF 50% (8.12 MEQ/2 ML-1 GM VIAL) IVPB ONE (13:11)
--- NOTE | 2019-03-03 13:15 | PN ---
Physical Exam: SUBJECTIVE: Patient seen and examined, polyuria/polydypsia improved. OBJECTIVE: Vital Signs Period Temp Pulse Resp BP Sys/Casiano Pulse Ox Last 24 Hr 97.7 F-98.6 F 54-74 20-20 91-145/49-74 97 General: sitting in bed in no acute distress Neck: soft, supple, no JVd Chest: CTAB, no rales or wheezing Abdomen:soft, NT throughout, ND, pos bowel sounds Extremities: no edema Psych: pleasant, co-operative Laboratory Results - last 24 hr 03/02/19 03/02/19 03/03/19 17:23 22:37 06:54 WBC RBC Hgb Hct MCV MCH MCHC RDW Plt Count MPV Absolute Neuts (auto) Neutrophils % Lymphocytes % Monocytes % Eosinophils % Basophils % Nucleated RBC % Sodium Potassium Chloride Carbon Dioxide Anion Gap BUN Creatinine Est GFR (CKD-EPI)AfAm Est GFR (CKD-EPI)NonAf POC Glucometer 282 280 197 Random Glucose Calcium Phosphorus Magnesium Total Bilirubin AST ALT Alkaline Phosphatase Total Protein Albumin 03/03/19 03/03/19 03/03/19 07:24 07:24 11:26 WBC 8.1 RBC 3.75 L Hgb 11.6 L Hct 32.6 L MCV 87.0 MCH 31.0 MCHC 35.6 RDW 13.4 Plt Count 170 MPV 10.1 Absolute Neuts (auto) 4.2 Neutrophils % 51.6 Lymphocytes % 29.5 D Monocytes % 10.4 H Eosinophils % 7.4 H Basophils % 1.1 Nucleated RBC % 0 Sodium 141 Potassium 4.0 Chloride 110 H Carbon Dioxide 24 Anion Gap 7 L BUN 15.8 Creatinine 1.1 Est GFR (CKD-EPI)AfAm 78.97 Est GFR (CKD-EPI)NonAf 68.13 POC Glucometer 239 Random Glucose 205 H Calcium 8.7 Phosphorus 2.9 Magnesium 1.7 L Total Bilirubin 0.4 AST 7 L ALT 15 Alkaline Phosphatase 64 Total Protein 5.4 L Albumin 3.0 L Active Medications Generic Name Dose Route Start Last Admin Trade Name Freq PRN Reason Stop Dose Admin Acetaminophen 650 mg 03/01/19 22:25 Tylenol - PO Q4H PRN PAIN Aspirin 81 mg 03/02/19 10:00 03/03/19 11:32 Asa - PO 81 mg DAILY [facility] Administration Cholecalciferol 4,000 unit 03/02/19 22:00 03/02/19 22:38 Vitamin D3 - PO 4,000 unit HS [facility] Administration Diltiazem HCl 30 mg 03/02/19 10:00 03/03/19 10:53 Cardizem - PO 30 mg BID [facility] Administration Ezetimibe 10 mg 03/02/19 10:00 03/03/19 10:53 Zetia - PO 10 mg DAILY [facility] Administration Fenofibric Acid 45 mg 03/02/19 22:00 03/02/19 22:48 Trilipix - PO 45 mg HS [facility] Administration Finasteride 5 mg 03/02/19 22:00 03/02/19 22:39 Proscar - PO 5 mg HS [facility] Administration Heparin Sodium (Porcine) 5,000 unit 03/02/19 02:00 03/03/19 11:32 Heparin - SQ 5,000 unit Q8H-IV [facility] Administration Sodium Chloride 1,000 mls @ 125 mls/hr 03/01/19 22:30 03/03/19 11:44 Normal Saline - IV 125 mls/hr ASDIR [facility] Administration Insulin Aspart 1 vial 03/03/19 16:30 Novolog Vial Sliding Scale - SQ TIDAC [facility] Protocol Insulin Aspart 1 vial 03/03/19 22:00 Novolog Vial Sliding Scale - SQ HS [facility] Protocol Insulin Detemir 15 units 03/03/19 18:00 Levemir Vial SQ DAILY [facility] Isosorbide Mononitrate 30 mg 03/02/19 10:00 03/03/19 10:53 Imdur - PO 30 mg BID [facility] Administration Levothyroxine Sodium 200 mcg 03/02/19 07:00 03/03/19 06:55 Synthroid - PO 200 mcg DAILY@0700 [facility] Administration Magnesium Oxide 400 mg 03/02/19 22:00 03/02/19 22:38 Mag-Ox - PO 400 mg HS [facility] Administration Magnesium Sulfate 2 gm 03/03/19 13:11 Magnesium Sulfate IVPB 03/03/19 13:12 ONCE ONE Metoprolol Succinate 25 mg 03/02/19 22:00 03/02/19 22:38 Toprol Xl - PO 25 mg HS [facility] Administration Non-Formulary Medication 8 mg 03/02/19 10:00 Galantamine Hydrobromide [Razadyne (Nf)] PO BID [facility] Non-Formulary Medication 2 gm 03/02/19 10:00 Icosapent Ethyl [Vascepa] PO BID [facility] Prasugrel 10 mg 03/02/19 10:00 03/03/19 11:33 Effient - PO 03/06/19 10:01 10 mg DAILY [facility] Administration Rosuvastatin Calcium 40 mg 03/02/19 22:00 03/02/19 22:39 Crestor - PO 40 mg HS [facility] Administration Tamsulosin HCl 0.4 mg 03/02/19 08:30 03/03/19 08:36 Flomax - PO 0.4 mg DAILY@0830 [facility] Administration MRI abdomen results reviewed ASSESSMENT/PLAN: 68 yom with PMHx of DM type 2, HTN, NILES, Coronary artery disease- 6 stents placed, hypothyrodism, polyps, hemorrhoids admitted with severe hyperglycemia, and ongoing abdominal pain with concern for pancreatic mass -Severe hyperglycemia -Hypovolumia -NIDA, suspect from severe hypovolumia from osmotic diuresis +/- poor oral intake -Pancreatic cyst -Elevated lipase, low clinical suspicion for acute pancreatitis -CAD s/p multiple PCI -HTN -NILES -Hypothyroidism -Polyps -Haemorrhoids Plan: Blood sugars improved. Endocrine input appreciated. A1c 10.8. Long standing poor control. Increase levemir 15 units. Discussed with patient and nursing, to come in today for insulin teaching. Diabetic education, nutrition consult. NIDA resolved. Decreaed IVF. Resume ACEi. GI input noted, MRCP with likely benign pancreatic cyst, follow up MRCP In 6 months. Continue ASA/Prasugrel/imdur/statin/ezetemibe/metoprolol. DVTPPX heparin Dispo dc home in 24 hours on insulin if no concerns. Discussed with patient and nursing. Visit type - Emergency Visit Emergency Visit: Yes ED Registration Date: 03/01/19 Care time: The patient presented to the Emergency Department on the above date and was hospitalized for further evaluation of their emergent condition. - New Patient This patient is new to me today: No - Critical Care Critical Care patient: No - Discharge Referral Referred to [facility] Med P.C.: No
[2019-03-03] MEDS ORDERED: PRASUGREL HCL 10 MG TAB PO SCH (13:17)
--- NOTE | 2019-03-03 13:55 | PN.GI ---
GI Progress Note Subjective: States feeling well, except his "back went out" MRI/MRCP revealed a benign appearing pancreatic cyst. There is no pancreatic or biliary ductal dilatation noted. Endocrine evaluating - Objective Vital Signs: Vital Signs Temperature 98.2 F 03/03/19 10:09 Pulse Rate 58 L 03/03/19 10:09 Respiratory Rate 20 03/03/19 10:09 Blood Pressure 123/63 03/03/19 10:09 O2 Sat by Pulse Oximetry (%) 97 03/02/19 21:00 Labs: CBC, BMP 03/03/19 07:24 03/03/19 07:24 INR, PTT INR 0.90 (0.83-1.09) 03/01/19 18:38 Problem List - Problems (1) Pancreatic cyst Assessment/Plan: Benign appearing 1cm pancreatic cyst on MRI. Outpatient follow-up as outlined in initial consult Glycemic control: patient being evaluated by endocrine Code(s): K86.2 - CYST OF PANCREAS (2) Dysphagia Assessment/Plan: Appreciate S/S recs: Consider modified barium swallow / ENT evaluation Code(s): R13.10 - DYSPHAGIA, UNSPECIFIED (3) Enlarged prostate Assessment/Plan: F/U per PMD Code(s): N40.0 - BENIGN PROSTATIC HYPERPLASIA WITHOUT LOWER URINRY TRACT SYMP
[2019-03-03] MEDS: INSULIN (LEVEMIR) 100 UNITS/ML UNITS SQ SCH (17:57)
[2019-03-03] MEDS ORDERED: INSULIN (LEVEMIR) 100 UNITS/ML UNITS SQ SCH (18:00)
[2019-03-03] MEDS: ACETAMINOPHEN 325 MG TABLET (FP) PO PRN (18:29)
[2019-03-03] MEDS: CHOLECALCIFEROL (VIT D3) 1,000 UNIT (25 MCG) TABLET PO SCH (21:02)
[2019-03-03] MEDS: FINASTERIDE 5 MG TABLET (FP) PO SCH (21:03)
[2019-03-03] MEDS: ROSUVASTATIN CA 20 MG TABLET (FP) PO SCH (21:04)
[2019-03-03] MEDS: metoPROLOL SUCCINATE 25 MG TAB.SR.24H (FP) PO SCH (21:04)
[2019-03-03] MEDS: MAGNESIUM OXIDE 400 MG TABLET (FP) PO SCH (21:04)
[2019-03-03] MEDS: FENOFIBRIC ACID 45 MG CAP PO SCH (21:10)
[2019-03-03] MEDS ORDERED: INSULIN SLIDING SCALE (NOVOLOG) 1 VIAL SQ SCH (22:00)
[2019-03-04] MEDS: HEPARIN NA (PORCINE) 5,000 UNITS/ML 1ML VIAL SQ SCH ×2 (02:28→10:20)
[2019-03-04] MEDS: LEVOTHYROXINE NA 200 MCG TABLET PO SCH (06:21)
[2019-03-04] MEDS: INSULIN SLIDING SCALE (NOVOLOG) 1 VIAL SQ SCH ×2 (06:21→11:41)
[2019-03-04] MEDS: INSULIN (LEVEMIR) 100 UNITS/ML UNITS SQ SCH (06:21)
[2019-03-04] MEDS ORDERED: INSULIN (NOVOLOG) ASPART 100 UNITS/ML 10ML VIAL ONE ×2 (06:26→11:23)
[2019-03-04] MEDS: ACETAMINOPHEN 325 MG TABLET (FP) PO PRN (06:32)
[2019-03-04] MEDS ORDERED: NITROGLYCERIN SUBLINGUAL 1/150 0.4 MG TAB ONE (07:08)
[2019-03-04 07:47] LABS: BASO % 1.5 % (0-2.0); EOS % 7.3 % (0-4.5); HEMATOCRIT 33.6 % (35.4-49); HEMOGLOBIN 11.8 GM/dL (11.7-16.9); LYMPH % 27.7 % (8-40); MCH 31.1 pg (25.7-33.7); MCHC 35.2 g/dl (32.0-35.9); MEAN CELL VOLUME 88.5 fl (80-96); MONO % 10.1 % (3.8-10.2); NEUT % 53.4 % (42.8-82.8); PLATELET COUNT 167 K/MM3 (134-434); RBC 3.79 M/mm3 (4.00-5.60); RDW 13.2 % (11.9-15.9); WHITE BLOOD COUNT 7.9 K/mm3 (4.0-10.0)
[2019-03-04] MEDS ORDERED: NITROGLYCERIN SUBLINGUAL 1/150 0.4 MG TAB SL ONE (08:05)
[2019-03-04] MEDS: TAMSULOSIN HCL 0.4 MG CAP PO SCH (08:14)
[2019-03-04 08:18] LABS: ANION GAP 7 MMOL/L (8-16); BLOOD UREA NITROGEN 12.3 mg/dL (7-18); CALCIUM 8.7 mg/dL (8.5-10.1); CHLORIDE 110 mmol/L (98-107); CO2 25 mmol/L (21-32); CREATININE 1.1 mg/dL (0.55-1.3); GLUCOSE,RANDOM 213 mg/dL (74-106); MAGNESIUM 1.9 mg/dL (1.8-2.4); POTASSIUM 3.6 mmol/L (3.5-5.1); SODIUM 142 mmol/L (136-145)
[2019-03-04] MEDS ORDERED: PT OWN MED DRAWER 7, Y5N ONE ×2 (10:18→10:44)
--- NOTE | 2019-03-04 10:19 | EKG ---
Test Reason : Blood Pressure : / mmHG Vent. Rate : 056 BPM Atrial Rate : 056 BPM P-R Int : 182 ms QRS Dur : 100 ms QT Int : 460 ms P-R-T Axes : 026 -22 015 degrees QTc Int : 443 ms SINUS BRADYCARDIA SEPTAL INFARCT (CITED ON OR BEFORE 01-MAR-2019) ABNORMAL ECG WHEN COMPARED WITH ECG OF 01-MAR-2019 18:25, QUESTIONABLE CHANGE IN INITIAL FORCES OF ANTEROSEPTAL LEADS Confirmed by Nancy Fisher ([id number]) on 03/04/2019 10:19:08 AM Referred By: Confirmed By:Nancy Fisher
[2019-03-04] MEDS: ASPIRIN 81 MG CHEWABLE TABLETS PO SCH (10:20)
[2019-03-04] MEDS: ISOSORBIDE MONONITRATE 30 MG TAB.SR.24H (FP) PO SCH (10:20)
[2019-03-04] MEDS: EZETIMIBE 10 MG TABLET (FP) PO SCH (10:20)
[2019-03-04] MEDS: dilTIAZem HCL 30 MG TABLET (FP) PO SCH (10:20)
[2019-03-04] MEDS: SODIUM CHLORIDE 1,000 ML IV SCH (10:21)
--- NOTE | 2019-03-04 11:57 | PN ---
Physical Exam: SUBJECTIVE: Patient seen and examined, no further chest pain. Had some chest pain earlier, reports long standing h/o of the same few times a month, that resolves with sl NTG, does not feel like his prior [place] episodes. No pain currently. Dr. Cardenas aware, reports has known small distant blockage. No complaints otherwise. OBJECTIVE: Vital Signs Period Temp Pulse Resp BP Sys/Casiano Pulse Ox Last 24 Hr 97.7 F-99 F 55-67 18-20 105-141/58-77 98 Intake & Output 03/01/19 03/02/19 03/03/19 03/04/19 23:59 23:59 23:59 23:59 Intake Total 4475 2100 1200 Balance 4475 2100 1200 Weight 223 lb 4.8 oz 223 lb General: sitting in bed in no acute distress Neck: soft, supple, no JVd Chest: CTAB, no rales or wheezing Abdomen:soft, NT throughout, ND, pos bowel sounds Extremities: no edema Psych: pleasant, co-operative Laboratory Results - last 24 hr 03/03/19 03/03/19 03/04/19 17:02 21:12 05:43 WBC RBC Hgb Hct MCV MCH MCHC RDW Plt Count MPV Absolute Neuts (auto) Neutrophils % Lymphocytes % Monocytes % Eosinophils % Basophils % Nucleated RBC % Sodium Potassium Chloride Carbon Dioxide Anion Gap BUN Creatinine Est GFR (CKD-EPI)AfAm Est GFR (CKD-EPI)NonAf POC Glucometer 259 268 235 Random Glucose Calcium Phosphorus Magnesium Troponin I 03/04/19 03/04/19 03/04/19 07:15 07:15 09:17 WBC 7.9 RBC 3.79 L Hgb 11.8 Hct 33.6 L MCV 88.5 MCH 31.1 MCHC 35.2 RDW 13.2 Plt Count 167 MPV 10.0 Absolute Neuts (auto) 4.2 Neutrophils % 53.4 Lymphocytes % 27.7 Monocytes % 10.1 Eosinophils % 7.3 H Basophils % 1.5 Nucleated RBC % 0 Sodium 142 Potassium 3.6 Chloride 110 H Carbon Dioxide 25 Anion Gap 7 L BUN 12.3 Creatinine 1.1 Est GFR (CKD-EPI)AfAm 78.97 Est GFR (CKD-EPI)NonAf 68.13 POC Glucometer Random Glucose 213 H Calcium 8.7 Phosphorus 3.0 Magnesium 1.9 Troponin I < 0.02 < 0.02 03/04/19 11:39 WBC RBC Hgb Hct MCV MCH MCHC RDW Plt Count MPV Absolute Neuts (auto) Neutrophils % Lymphocytes % Monocytes % Eosinophils % Basophils % Nucleated RBC % Sodium Potassium Chloride Carbon Dioxide Anion Gap BUN Creatinine Est GFR (CKD-EPI)AfAm Est GFR (CKD-EPI)NonAf POC Glucometer 223 Random Glucose Calcium Phosphorus Magnesium Troponin I Active Medications Generic Name Dose Route Start Last Admin Trade Name Freq PRN Reason Stop Dose Admin Acetaminophen 650 mg 03/01/19 22:25 03/04/19 06:32 Tylenol - PO 650 mg Q4H PRN Administration PAIN Aspirin 81 mg 03/02/19 10:00 03/04/19 10:20 Asa - PO 81 mg DAILY RAMON Administration Cholecalciferol 4,000 unit 03/02/19 22:00 03/03/19 21:02 Vitamin D3 - PO 4,000 unit HS RAMON Administration Diltiazem HCl 30 mg 03/02/19 10:00 03/04/19 10:20 Cardizem - PO 30 mg BID RAMON Administration Ezetimibe 10 mg 03/02/19 10:00 03/04/19 10:20 Zetia - PO 10 mg DAILY RAMON Administration Fenofibric Acid 45 mg 03/02/19 22:00 03/03/19 21:10 Trilipix - PO 45 mg HS RAMON Administration Finasteride 5 mg 03/02/19 22:00 03/03/19 21:03 Proscar - PO 5 mg HS RAMON Administration Heparin Sodium (Porcine) 5,000 unit 03/02/19 02:00 03/04/19 10:20 Heparin - SQ 5,000 unit Q8H-IV RAMON Administration Sodium Chloride 1,000 mls @ 100 mls/hr 03/03/19 13:17 03/04/19 10:21 Normal Saline - IV 100 mls/hr ASDIR RAMON Administration Insulin Aspart 1 vial 03/03/19 16:30 03/04/19 11:41 Novolog Vial Sliding Scale - SQ 6 units TIDAC RAMON Administration Protocol Insulin Aspart 1 vial 03/03/19 22:00 03/03/19 21:14 Novolog Vial Sliding Scale - SQ 4 unit HS RAMON Administration Protocol Insulin Detemir 15 units 03/03/19 18:00 03/04/19 06:21 Levemir Vial SQ 15 units DAILY@0700 RAMON Administration Isosorbide Mononitrate 30 mg 03/02/19 10:00 03/04/19 10:20 Imdur - PO 30 mg BID RAMON Administration Levothyroxine Sodium 200 mcg 03/02/19 07:00 03/04/19 06:21 Synthroid - PO 200 mcg DAILY@0700 RAMON Administration Magnesium Oxide 400 mg 03/02/19 22:00 03/03/19 21:04 Mag-Ox - PO 400 mg HS RAMON Administration Metoprolol Succinate 25 mg 03/02/19 22:00 03/03/19 21:04 Toprol Xl - PO 25 mg HS RAMON Administration Non-Formulary Medication 8 mg 03/02/19 10:00 Galantamine Hydrobromide [Razadyne (Nf)] PO BID [facility] Non-Formulary Medication 2 gm 03/02/19 10:00 Icosapent Ethyl [Vascepa] PO BID RAMON Prasugrel 10 mg 03/03/19 13:17 03/04/19 10:21 Effient - PO 10 mg DAILY RAMON Administration Rosuvastatin Calcium 40 mg 03/02/19 22:00 03/03/19 21:04 Crestor - PO 40 mg HS RAMON Administration Tamsulosin HCl 0.4 mg 03/02/19 08:30 03/04/19 08:14 Flomax - PO 0.4 mg DAILY@0830 RAMON Administration ASSESSMENT/PLAN: 68 yom with PMHx of DM type 2, HTN, NILES, Coronary artery disease- 6 stents placed, hypothyrodism, polyps, hemorrhoids admitted with severe hyperglycemia, and ongoing abdominal pain with concern for pancreatic mass -Severe hyperglycemia -Hypovolumia -NIDA, suspect from severe hypovolumia from osmotic diuresis +/- poor oral intake -Pancreatic cyst -Elevated lipase, low clinical suspicion for acute pancreatitis -CAD s/p multiple PCI with chronic stable angina. -HTN -NILES -Hypothyroidism -Polyps -Haemorrhoids Plan: Blood sugars improved. Endocrine input appreciated. A1c 10.8. Long standing poor control. Levemir teaching provided to . Likely levemir flex-pen 18-20 units on dc. EKG unchanged, Tn neg, repeat trop this afternoon. Continue ASA/prasugrel/imdur/ ranexa/metoprolol/diltiazem/statin/ezetimibe. Diabetic education NIDA resolved. Decreaed IVF. Resume ACEi. GI input noted, MRCP with likely benign pancreatic cyst, follow up MRCP In 6 months, discussed with patient. Continue ASA/Prasugrel/imdur/statin/ezetemibe/metoprolol. DVTPPX heparin Dispo plan for dc home later today if neg trop and no new concerns. Discussed with patient and nursing. Visit type - Emergency Visit Emergency Visit: Yes ED Registration Date: 03/01/19 Care time: The patient presented to the Emergency Department on the above date and was hospitalized for further evaluation of their emergent condition. - New Patient This patient is new to me today: No - Critical Care Critical Care patient: No - Discharge Referral Referred to [facility] Med P.C.: No
--- NOTE | 2019-03-04 13:20 | PN ---
Progress Note (short form) - Note Progress Note: Denies any complaints Had CP earlier Vital Signs Period Temp Pulse Resp BP Sys/Casiano Pulse Ox Last 24 Hr 97.7 F-99 F 55-67 18-20 105-141/58-77 98 PE: AOx3 Neck: Supple, No JVD HEENT: EOMI Lungs: CTA CVS: S1S2 Abd: Benign Ext: No edema Neuro: No focal deficit CMP Sodium 142 mmol/L (136-145) 03/04/19 07:15 Potassium 3.6 mmol/L (3.5-5.1) 03/04/19 07:15 Chloride 110 mmol/L (98-107) H 03/04/19 07:15 Carbon Dioxide 25 mmol/L (21-32) 03/04/19 07:15 Anion Gap 7 MMOL/L (8-16) L 03/04/19 07:15 BUN 12.3 mg/dL (7-18) 03/04/19 07:15 Creatinine 1.1 mg/dL (0.55-1.3) 03/04/19 07:15 Est GFR (CKD-EPI)AfAm 78.97 03/04/19 07:15 Est GFR (CKD-EPI)NonAf 68.13 03/04/19 07:15 POC Glucometer 223 UNITS (80-120) 03/04/19 11:39 Random Glucose 213 mg/dL (74-106) H 03/04/19 07:15 Hemoglobin A1c % 10.3 % (4.2-6.3) H 03/01/19 22:56 Calcium 8.7 mg/dL (8.5-10.1) 03/04/19 07:15 Phosphorus 3.0 mg/dL (2.5-4.9) 03/04/19 07:15 Magnesium 1.9 mg/dL (1.8-2.4) 03/04/19 07:15 Total Bilirubin 0.4 mg/dL (0.2-1) 03/03/19 07:24 AST 7 U/L (15-37) L 03/03/19 07:24 ALT 15 U/L (13-61) 03/03/19 07:24 Alkaline Phosphatase 64 U/L (45-117) 03/03/19 07:24 Creatine Kinase 110 U/L (26-308) 03/01/19 18:38 Troponin I < 0.02 ng/ml (0.00-0.05) 03/04/19 09:17 Total Protein 5.4 g/dl (6.4-8.2) L 03/03/19 07:24 Albumin 3.0 g/dl (3.4-5.0) L 03/03/19 07:24 Triglycerides 520 mg/dL (0-150) H 03/01/19 22:56 Cholesterol 92 mg/dL (50-200) 03/01/19 22:56 Total LDL Cholesterol 28 mg/dL (5-100) 03/01/19 22:56 HDL Cholesterol 22 mg/dL (40-60) L 03/01/19 22:56 Lipase 2575 U/L (73-393) H 03/01/19 18:38 TSH 2.28 uIU/ml (0.358-3.74) 03/02/19 07:30 Resin T3 Uptake 36.9 % (33-40) 03/02/19 07:30 Current Medications Generic Name Dose Route Start Last Admin Trade Name Freq PRN Reason Stop Dose Admin Acetaminophen 650 mg 03/01/19 22:25 03/04/19 06:32 Tylenol - PO 650 mg Q4H PRN Administration PAIN Aspirin 81 mg 03/02/19 10:00 03/04/19 10:20 Asa - PO 81 mg DAILY RAMON Administration Cholecalciferol 4,000 unit 03/02/19 22:00 03/03/19 21:02 Vitamin D3 - PO 4,000 unit HS RAMON Administration Diltiazem HCl 30 mg 03/02/19 10:00 03/04/19 10:20 Cardizem - PO 30 mg BID RAMON Administration Ezetimibe 10 mg 03/02/19 10:00 03/04/19 10:20 Zetia - PO 10 mg DAILY RAMON Administration Fenofibric Acid 45 mg 03/02/19 22:00 03/03/19 21:10 Trilipix - PO 45 mg HS RAMON Administration Finasteride 5 mg 03/02/19 22:00 03/03/19 21:03 Proscar - PO 5 mg HS RAMON Administration Heparin Sodium (Porcine) 5,000 unit 03/02/19 02:00 03/04/19 10:20 Heparin - SQ 5,000 unit Q8H-IV RAMON Administration Sodium Chloride 1,000 mls @ 100 mls/hr 03/03/19 13:17 03/04/19 10:21 Normal Saline - IV 100 mls/hr ASDIR RAMON Administration Insulin Aspart 1 vial 03/03/19 16:30 03/04/19 11:41 Novolog Vial Sliding Scale - SQ 6 units TIDAC RAMON Administration Protocol Insulin Aspart 1 vial 03/03/19 22:00 03/03/19 21:14 Novolog Vial Sliding Scale - SQ 4 unit HS RAMON Administration Protocol Insulin Detemir 15 units 03/03/19 18:00 03/04/19 06:21 Levemir Vial SQ 15 units DAILY@0700 RAMON Administration Isosorbide Mononitrate 30 mg 03/02/19 10:00 03/04/19 10:20 Imdur - PO 30 mg BID RAMON Administration Levothyroxine Sodium 200 mcg 03/02/19 07:00 03/04/19 06:21 Synthroid - PO 200 mcg DAILY@0700 RAMON Administration Magnesium Oxide 400 mg 03/02/19 22:00 03/03/19 21:04 Mag-Ox - PO 400 mg HS RAMON Administration Metoprolol Succinate 25 mg 03/02/19 22:00 03/03/19 21:04 Toprol Xl - PO 25 mg HS [facility] Administration Non-Formulary Medication 8 mg 03/02/19 10:00 Galantamine Hydrobromide [Razadyne (Nf)] PO BID [facility] Non-Formulary Medication 2 gm 03/02/19 10:00 Icosapent Ethyl [Vascepa] PO BID RAMON Prasugrel 10 mg 03/03/19 13:17 03/04/19 10:21 Effient - PO 10 mg DAILY RAMON Administration Rosuvastatin Calcium 40 mg 03/02/19 22:00 03/03/19 21:04 Crestor - PO 40 mg HS RAMON Administration Tamsulosin HCl 0.4 mg 03/02/19 08:30 03/04/19 08:14 Flomax - PO 0.4 mg DAILY@0830 RAMON Administration AP: T2DM with hyperglycemia Pancreatic lesion Wt loss Hypothyroidism HTN CAD Pancreatic cyst: MRI report reviewed BGM QACHS Hold oral hypoglycemia meds for now Increase NOvolog SS coverage On Levemir 15 units daily in AM, Got 15 units at 17:57 yesterday also. Monitor pt clinically. Blood sugar still >200 Pt may be sent home on Levemir 15 daily in AM, Novolog SS coverage and Metformin. F/u in office in one week. Pt to call me at [phone] with any questions. Will f/u
--- NOTE | 2019-03-04 15:04 | DS ---
Physical Exam: SUBJECTIVE: Patient seen and examined, feeling well, no complaints. OBJECTIVE: Vital Signs Period Temp Pulse Resp BP Sys/Casiano Pulse Ox Last 24 Hr 97.7 F-99 F 55-67 18-20 105-141/58-77 98 PHYSICAL EXAM General: sitting in bed in no acute distress Neck: soft, supple, no JVd Chest: CTAB, no rales or wheezing Abdomen:soft, NT throughout, ND, pos bowel sounds Extremities: no edema Psych: pleasant, co-operative LABS Laboratory Results - last 24 hr 03/03/19 03/03/19 03/04/19 17:02 21:12 05:43 WBC RBC Hgb Hct MCV MCH MCHC RDW Plt Count MPV Absolute Neuts (auto) Neutrophils % Lymphocytes % Monocytes % Eosinophils % Basophils % Nucleated RBC % Sodium Potassium Chloride Carbon Dioxide Anion Gap BUN Creatinine Est GFR (CKD-EPI)AfAm Est GFR (CKD-EPI)NonAf POC Glucometer 259 268 235 Random Glucose Calcium Phosphorus Magnesium Troponin I 03/04/19 03/04/19 03/04/19 07:15 07:15 09:17 WBC 7.9 RBC 3.79 L Hgb 11.8 Hct 33.6 L MCV 88.5 MCH 31.1 MCHC 35.2 RDW 13.2 Plt Count 167 MPV 10.0 Absolute Neuts (auto) 4.2 Neutrophils % 53.4 Lymphocytes % 27.7 Monocytes % 10.1 Eosinophils % 7.3 H Basophils % 1.5 Nucleated RBC % 0 Sodium 142 Potassium 3.6 Chloride 110 H Carbon Dioxide 25 Anion Gap 7 L BUN 12.3 Creatinine 1.1 Est GFR (CKD-EPI)AfAm 78.97 Est GFR (CKD-EPI)NonAf 68.13 POC Glucometer Random Glucose 213 H Calcium 8.7 Phosphorus 3.0 Magnesium 1.9 Troponin I < 0.02 < 0.02 03/04/19 03/04/19 11:39 13:28 WBC RBC Hgb Hct MCV MCH MCHC RDW Plt Count MPV Absolute Neuts (auto) Neutrophils % Lymphocytes % Monocytes % Eosinophils % Basophils % Nucleated RBC % Sodium Potassium Chloride Carbon Dioxide Anion Gap BUN Creatinine Est GFR (CKD-EPI)AfAm Est GFR (CKD-EPI)NonAf POC Glucometer 223 Random Glucose Calcium Phosphorus Magnesium Troponin I < 0.02 Microbiology 03/01/19 19:47 Urine - Urine Clean Catch Urine Culture - Final Escherichia Coli MRCP:There is no evidence of hepatosplenomegaly. No evidence of dilatation of the intrahepatic biliary radicles, common hepatic, or common bile ducts. No evidence of choledocholithiasis. There is a mild dilatation of the pancreatic duct from the head the to the tail with no definite evidence of underlying obstructive lesion at this study. The diffusion weighted images unremarkable. There is 1 cm cyst of the junction of the neck and the body of the pancreas noted on axial T2 image #23. The diffusion weighted images unremarkable. No evidence of peripancreatic fluid collection or lymphadenopathy. No evidence of obstructive uropathy. Impression: 1 cm cyst the at the junction of the pancreatic neck and the body without suspicious signal intensity changes on the diffusion weighted images. This is most probably a benign cyst. A follow- up is a 6 months is recommended. Mild dilatation of the pancreatic duct with no definite evidence of underlying obstructive lesion . No suspicious finding of malignancy in the liver, spleen, pancreas, retroperitoneum on kidneys. Diffusion-weighted unremarkable. No evidence of dilatation of common hepatic, common bile ducts. No evidence of intrahepatic biliary ducts dilatation. No evidence of choledocholithiasis. HOSPITAL COURSE: Date of Admission:03/01/19 Date of Discharge: 03/04/19 Minutes to complete discharge: 40 Discharge Summary Reason For Visit: PANCREATIC MASS,HYPERGLYCEMIA Current Active Problems NIDA (acute kidney injury) (Acute) Abdominal pain (Acute) Dysphagia (Acute) Elevated lipase (Acute) Enlarged prostate (Acute) Heart murmur (Acute) Hyperglycemia (Acute) Pancreatic cyst (Acute) Pancreatic mass (Acute) Weight loss (Acute) Hospital Course: 68 yom with PMHx of DM type 2, HTN, NILES, Coronary artery disease- 6 stents placed, hypothyrodism, polyps, hemorrhoids admitted with severe hyperglycemia, blood sugar 700s without anion gap, and ongoing abdominal pain with concern for pancreatic mass. He was seen by endocrinology and started on levemir which is titrated upto 15 units daily with improvement in blood sugars. his A1c was noted at 10.8. Diabetic education and insulin teaching were provided to the patient and . His oral DM meds have been discontinued for now. He also had NIDA cr around 2, that resolved with hydration. Gastroenterology was consulted, he had MRCP suggestive of pancreatic cyst with outpatient repeat imaging in 6 months. He had a transient episode of chest pain, with unchanged EKG and tn neg x 3 and resolved with sl NTG. He was continued on ASA, prasugrel, Imdur, statin , ezetemibe, metoprolol. He will be discharged home in stable condition with close outpatient follow up with PCP, Endocrine, cardiology and GI. Condition: Stable - Instructions Diet, Activity, Other Instructions: You were admitted with very high blood sugars and abnormal CT scan of your belly. You were seen by car wrecker and started on insulin with improved blood sugars. Also you were seen by mangle catcher and had MRI of your belly suggesting pancreatic cyst. You also had chest pain with negative blood testing for heart attack. MEDICATIONS: Stop all your diabetes pills that include Janumet and amaryl Start levemir insulin 15 units daily in morning before breakfast via flexpen. Continue all your other medications as before INSTRUCTIONS: It is very important that you monitor your blood sugars and closely follow up with your doctor and car wrecker. You are provided with glucometer and stips and needles. Check your blood sugars before meals and at bedtime and maintain a diary Notify your doctor if your blood sugars are persistently elevated >200 or any reading < 75. Call 911 or come to ED right away if any concerns noted. You are provided with education on low blood sugar. Please ensure to have sugar candy or sugar source handy in case you feel any symptoms of low blood sugar as discussed. In that case, please call your doctor to adjust your insulin dosing. You will need MRCP in 6 months. Maintain adequate hydration. FOLLOW UP: Call your doctor's office in 1-2 days to discuss blood sugar readings and follow up. With Dr. Cook in [address] Quiñonez in 1 week (or your can discuss with your doctor for endocrinology referral) Dr. Cardenas's follow up in 1-2 weeks MRCP in 6 months Gastroenterology follow up in a few months. If you notice any concerns, very high blood sugars (>450), or any other symptoms , please call 911 or come to ED rightaway. Referrals: Maxwell Cook MD [Primary Care Provider] - Yomi Cardenas MD [Staff Physician] - Ronna Escalante MD [Staff Physician] - Vannesa Quiñonez MD [Staff Physician] - Disposition: HOME - Home Medications Comprehensive Discharge Medication List: Ambulatory Orders Ezetimibe [Zetia] 10 mg PO DAILY 03/02/13 Fenofibrate 54 mg PO HS 03/02/13 Glimepiride [Amaryl] 4 mg PO BID 03/02/13 Levothyroxine [Synthroid -] 200 mcg PO DAILY 03/02/13 Metoprolol Succinate [Toprol XL -] 25 mg PO HS 03/02/13 Ranolazine [Ranexa -] 1,000 mg PO DAILY 03/02/13 Alfuzosin HCl [Alfuzosin HCl ER] 10 mg PO DAILY 08/26/16 Cholecalciferol (Vitamin D3) [Vitamin D3] 4,000 unit PO HS 08/26/16 Cyanocobalamin (Vitamin B-12) [Vitamin B12] 2,500 mcg PO DAILY 08/26/16 Finasteride 5 mg PO HS 08/26/16 Galantamine Hydrobromide [Razadyne (Nf)] 8 mg PO BID 08/26/16 Magnesium Oxide [Magnesium] 500 mg PO HS 08/26/16 Ramipril 1 tab PO DAILY 08/26/16 Prasugrel Hydrochloride [Effient -] 10 mg PO DAILY #0 08/27/16 Isosorbide Mononitrate [Isosorbide Mononitrate ER] 30 mg PO BID 01/13/17 Rosuvastatin Calcium [Crestor] 40 mg PO HS 01/13/17 Sitagliptin Phos/Metformin HCl [Janumet 50-1,000 mg Tablet] 1 each PO BID Ubidecarenone [Co Q-10] 200 mg PO HS 01/13/17 Aspirin 81 mg PO DAILY 03/01/19 Diltiazem [Cardizem -] 30 mg PO BID 03/01/19 Icosapent Ethyl [Vascepa] 2 gm PO BID 03/01/19 Insulin Detemir [Levemir Flextouch] 15 unit SQ ACBK #1 insuln.pen 03/04/19 Lancets/Blood Glucose Strips [Fora [id number] Strp-Lnct] 1 each ASDIR # 100 combo..pkg 03/04/19 Miscellaneous Medical Supply [Glucometer Device] 1 each .ROUTE ASDIR #1 kit 11/17 Miscellaneous Medical Supply [Glucometer Test Strips #100] 1 each .ROUTE ASDIR # 1 box 03/04/19 This patient is new to me today: No Emergency Visit: Yes ED Registration Date: 03/01/19 Care time: The patient presented to the Emergency Department on the above date and was hospitalized for further evaluation of their emergent condition. Critical Care patient: No - Discharge Referral Referred to [facility] Med P.C.: No
[2019-03-04 15:09] VITALS: BP 112/66; PULSE 89; TEMP 98.2
[2019-03-04] MEDS ORDERED: INSULIN SLIDING SCALE (NOVOLOG) 1 VIAL SQ SCH (16:30)
== END 2019-03-04 17:34 | disposition home health service (06) | DRG 638 ==
LOC: JER 18:02 → J5S 23:14
PROVIDERS: ADMIT Hospitalist; ATTEND Hospitalist
DX: E11.65 Type 2 diabetes mellitus with hyperglycemia (principal); N17.9 Acute kidney failure, unspecified; K86.1 Other chronic pancreatitis; E87.2 Acidosis; K86.2 Cyst of pancreas; K76.89 Other specified diseases of liver; G30.9 Alzheimer's disease, unspecified; F02.80 Dementia in other diseases classified elsewhere, unspecified severity, without behavioral disturbance, psychotic disturbance, mood disturbance, and anxiety; I10 Essential (primary) hypertension; E78.5 Hyperlipidemia, unspecified; I25.2 Old myocardial infarction; K57.90 Diverticulosis of intestine, part unspecified, without perforation or abscess without bleeding; K21.9 Gastro-esophageal reflux disease without esophagitis; E11.51 Type 2 diabetes mellitus with diabetic peripheral angiopathy without gangrene; E11.43 Type 2 diabetes mellitus with diabetic autonomic (poly)neuropathy; K31.84 Gastroparesis; N40.0 Benign prostatic hyperplasia without lower urinary tract symptoms; R01.1 Cardiac murmur, unspecified; E03.9 Hypothyroidism, unspecified; R63.4 Abnormal weight loss; Z68.27 Body mass index [BMI] 27.0-27.9, adult; R13.10 Dysphagia, unspecified; I25.10 Atherosclerotic heart disease of native coronary artery without angina pectoris; R74.8 Abnormal levels of other serum enzymes; G47.33 Obstructive sleep apnea (adult) (pediatric); K64.8 Other hemorrhoids; K63.5 Polyp of colon; E86.1 Hypovolemia; Z95.5 Presence of coronary angioplasty implant and graft; Z72.89 Other problems related to lifestyle
CPT/HCPCS: 36415; 71045-TC-FY; 74177-TC; 74183-TC; 80048; 80053; 80061; 81003; 82009; 82550; 82803; 82962; 83036; 83690; 83721; 83735; 84100; 84436; 84443; 84479; 84484; 85025; 85610; 85730; 86850; 86900; 86901; 87086; 87186; 93005; 93010; 99284-25; A9579; C1887; J1644; J7030; Q9967